=== PATIENT | female | born 1975 | race Hispanic/Latino ===

== ENCOUNTER 2018-01-10 04:10 | Inpatient (IN) | payer MEDICAID, OTHER ==
--- NOTE | 2018-01-10 04:26 | ED PDOC ---
Arrival/HPI - General Time Seen by Provider: 01/10/18 04:20 Historian: Patient - History of Present Illness Narrative History of Present Illness (Text): 01/10/18 04:25 Kendra Aleman is a 42 year old female, whose past medical history includes depression and schizoaffective disorder, transferred from [facility] for psychiatric admission. Patient was medically cleared earlier and admits to still feeling depressed. Patient denies any suicidal ideation, homicidal ideation, fever, chills, chest pain, shortness of breath, nausea, vomiting, diarrhea, urinary symptoms, back pain, neck pain, headache, dizziness, or any other complaints. Symptom Onset: Gradual Symptom Course: Unchanged Activities at Onset: Light Context: Home Past Medical History - Provider Review Nursing Documentation Reviewed: Yes Family/Social History - Physician Review Nursing Documentation Reviewed: Yes Family/Social History: Unknown Family HX Allergies/Home Meds Allergies/Adverse Reactions: Allergies Unobtainable Allergy (Verified 01/10/18 04:33) Home Medications: Home Meds Medication Instructions Recorded Confirmed Unobtainable 01/10/18 01/10/18 Review of Systems - Physician Review All systems were reviewed & negative as marked: Yes - Review of Systems Constitutional: Normal. absent: Fevers Eyes: Normal ENT: Normal Respiratory: Normal. absent: SOB, Cough Cardiovascular: Normal. absent: Chest Pain Gastrointestinal: Normal. absent: Abdominal Pain, Diarrhea, Nausea, Vomiting Genitourinary Female: Normal. absent: Dysuria, Frequency, Hematuria, Urine Output Changes Musculoskeletal: Normal. absent: Back Pain, Neck Pain Skin: Normal Neurological: Normal. absent: Headache, Dizziness Endocrine: Normal Hemo/Lymphatic: Normal Psychiatric: Depression Physical Exam Vital Signs Reviewed: Yes Vital Signs Temp Pulse Resp BP Pulse Ox 01/10/18 04:18 98.2 F 76 18 143/74 98 Temperature: Afebrile Blood Pressure: Normal Pulse: Regular Respiratory Rate: Normal Appearance: Positive for: Well-Appearing, Non-Toxic, Comfortable Pain Distress: None Mental Status: Positive for: Alert and Oriented X 3 - Systems Exam Head: Present: Atraumatic, Normocephalic Pupils: Present: PERRL Extroacular Muscles: Present: EOMI Conjunctiva: Present: Normal Mouth: Present: Moist Mucous Membranes Neck: Present: Normal Range of Motion Respiratory/Chest: Present: Clear to Auscultation, Good Air Exchange. No: Respiratory Distress, Accessory Muscle Use Cardiovascular: Present: Regular Rate and Rhythm, Normal S1, S2. No: Murmurs Abdomen: No: Tenderness, Distention, Peritoneal Signs Back: Present: Normal Inspection Upper Extremity: Present: Normal Inspection. No: Cyanosis, Edema Lower Extremity: Present: Normal Inspection. No: Edema Neurological: Present: GCS=15, CN II-XII Intact, Speech Normal Skin: Present: Warm, Dry, Normal Color. No: Rashes Psychiatric: Present: Alert, Oriented x 3, Normal Insight, Normal Concentration Medical Decision Making ED Course and Treatment: 01/10/18 04:25 Impression: 42 year old female transferred from [facility] for depression. 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 Patient will be admitted to [facility] for depression and schizoaffective disorder under Dr. Umana's service. Pt agreeable with plan. - Scribe Statement The provider has reviewed the documentation as recorded by the Biancaibabad Reed Provider Scribe Attestation: All medical record entries made by the Scribe were at my direction and personally dictated by me. I have reviewed the chart and agree that the record accurately reflects my personal performance of the history, physical exam, medical decision making, and the department course for this patient. I have also personally directed, reviewed, and agree with the discharge instructions and disposition. Disposition/Present on Arrival - Present on Arrival Any Indicators Present on Arrival: No History of DVT/PE: No History of Uncontrolled Diabetes: No Urinary Catheter: No History of Decub. Ulcer: No History Surgical Site Infection Following: None - Disposition Have Diagnosis and Disposition been Completed?: Yes Diagnosis: Depression Disposition: HOSPITALIZED Disposition Time: 04:36 Patient Plan: Admission Patient Problems: Current Active Problems Problem Status Onset Depression Acute Condition: STABLE
[2018-01-10] MEDS ORDERED: Permethrin 1% Kit 59 ML BOTTLE TOP ONE ×2 (04:57→09:47)
[2018-01-10] MEDS ORDERED: Magnesium Hydroxide Susp 30 ml UD PO PRN (04:57)
[2018-01-10] MEDS ORDERED: Alum-Mag Hydrox-Simethicone Susp (30 mL) PO PRN (04:57)
[2018-01-10 05:01] VITALS: O2SAT 99
--- NOTE | 2018-01-10 05:47 | PCM.BM ---
<Simon Arreola O - Last Filed: 01/10/18 06:18> Treatment Plan Problems - Problems identified on initial assessmt hopelessness Date Initiated: 01/10/18 Time Initiated: 05:45 Assessment reference: NA Status: Active Non-compliant with medications Date Initiated: 01/10/18 Time Initiated: 06:18 Assessment reference: NA Status: Active pOOR HYGIENE Date Initiated: 01/10/18 Time Initiated: 06:18 Assessment reference: NA Status: Active Treatment assets and liabiliti Patient Assests: ADL independent, good support system Patient Liabilities: poor support system - Milieu Protocol Maintain good personal hygiene: daily Encourage regular showers, daily Remind patient to perform daily oral care, daily Assist patient to perform ADL's Maintain personal safety: daily Educate patient to report safety concerns to staff, daily Monitor environment for contraband/sharps Medication safety: Monitor for expected outcome, potential side effects: daily, Assess barriers to learning: daily, Assess readiness for medication education: daily Family Contact Family involvement: Patient does not wish Family/SO involvement Family contact: Patient declines to allow family contact at present - Goals for Treatment Patient goals for treatment: I want to feel better than this Discharge/Continuing Care - Education Needs Education Needs: Patient Medication, Patient Diagnosis/Disease Process, Patient Coping Skills - Discharge Discharge Criteria: Normal sleep pattern, Ability to care for self <Tabatha Umana A - Last Filed: 01/10/18 09:15> - Diagnosis (1) MDD (major depressive disorder) Status: Acute Interventions: 01/10/18 09:14 Psychoeducation Psychopharmacology/adjustment of medications as needed/ monitoring possible side effects Evaluate pt on daily basis Compliance with medications and follow up appointments Suicide and homicide risk assessment and prevention Relapse prevention Reduction of symptoms Improve functional status Family involvement As outpatient: cognitive behavioral therapy
[2018-01-10 06:59] VITALS: RESP 20
[2018-01-10 08:21] LABS: GLUCOSE,FASTING 97 mg/dL (65-110); HDL CHOLESTEROL 29 mg/dL (29-60)
[2018-01-10 08:32] LABS: LDL CHOLESTEROL 74 mg/dL (0-129)
[2018-01-10 10:00] LABS: FREE T4 1.39 ng/dL (0.78-2.19); T4 9.8 ug/dL (5.5-11.0)
--- NOTE | 2018-01-10 14:38 | PCM.PSYCH ---
Initial Psychiatric Evaluation - Initial Psychiatric Evaluation Type of Admission: Voluntary Legal Status: Capacity (patient has capacity to sign consent for treatment) Chief Complaint (in patient's own words): "I feel depressed" Patient's Reaction to Hospitalization: patient was transferred from [facility] for evaluation of depressive symptoms, inability to take care of self, wish to be . History of Present Illness and Precipitating Events: Shortly pt is 42 yo male,h/o depression, homelessness, pt does not have h/o suicidal attempts, this is pt's first psychiatric admission, pt was brought into the [facility] for evaluation of severe depression for the past two months, inability to take care of self, pt had recent UTI, since that time pt had urine and fecal incontinence, pt was evicted from the group home because of the above, but later on allowed to stay there, pt also was had head lice, pt was not able to attend the partial care program because of her hygiene. pt obviously requires further evaluation and stabilization, meds resumption and titration. pt was seen in her room, pt presented with poor personal hygiene, smells feces, as per staff pt was not able to hold her BM and urine, pt took a shower was ordered NIX (permathrin) cream to her hair, but first dose pt was not able to use appropriate, second dose was ordered, pt has very long hair which required to be cut, pt agreed. pt has poor hygiene, poor ADLs. 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 pt denied feeling anxious, denied being abused, denied PTSD symptoms pt denied substance abuse h/o, denied smoking. Medical h/o: ? seizure, h/o UTI, h/o incontinence with urine and feces, lace infestation, ? h/o pain, hypothyroidism. 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 \\ pt denied h/o suicidal attempts, denied h/o psychiatric admission. but as per medical record pt has h/o treatment with [facility] in December 2017 , not sure if it was admission. Medical record reviewed, labs UA was +leukocyte esterase trace, WBC 11.8Neurotrophills 8.5 01/09/18. Lab Results 01/10/18 07:30: Free T4 1.39, Thyroxine (T4) 9.8 01/10/18 07:30: Free T3 pg/mL 3.78 01/10/18 07:30: Hemoglobin A1c 5.3 01/10/18 07:30: TSH 3rd Generation 6.80 H 01/10/18 07:30: Fasting Glucose 97, Triglycerides 119, Cholesterol 134, LDL Cholesterol Direct 74, HDL Cholesterol 29 Vital Signs Temp Pulse Resp BP Pulse Ox 01/10/18 06:58 97.5 F L 65 20 121/85 01/10/18 06:20 16 01/10/18 05:00 99 01/10/18 04:18 98.2 F 76 18 143/74 98 med list confirmed oxcarbazepine 150mg am and 300mg hs cymbalta 40mg po daily klonopin 0.5mg po daily pt was not taking meds for the past three weeks. Lab Results 01/10/18 07:30: Free T4 1.39, Thyroxine (T4) 9.8 01/10/18 07:30: Free T3 pg/mL 3.78 01/10/18 07:30: Hemoglobin A1c 5.3 01/10/18 07:30: TSH 3rd Generation 6.80 H 01/10/18 07:30: Fasting Glucose 97, Triglycerides 119, Cholesterol 134, LDL Cholesterol Direct 74, HDL Cholesterol 29 Vital Signs Temp Pulse Resp BP Pulse Ox 01/10/18 06:58 97.5 F L 65 20 121/85 01/10/18 06:20 16 01/10/18 05:00 99 01/10/18 04:18 98.2 F 76 18 143/74 98 Current Medications: Active Medications Generic Name Dose Route Start Last Admin Trade Name Freq PRN Reason Stop Dose Admin Acetaminophen 325 mg 01/10/18 04:57 Tylenol 325mg Tab PO Q6H PRN Pain, Mild (1-3) Al Hydrox/Mg Hydrox/Simethicone 30 ml 01/10/18 04:57 Maalox Plus 30 Ml PO DAILY PRN Dyspepsia Clonazepam 0.5 mg 01/10/18 08:00 Klonopin PO BID MU Protocol Duloxetine HCl 30 mg 01/10/18 08:00 Cymbalta PO DAILY MU Lorazepam 2 mg 01/10/18 04:58 Ativan PO Q6 PRN Agitation Protocol Lorazepam 2 mg 01/10/18 05:30 Ativan IM Q8 PRN Severe Agitation Magnesium Hydroxide 30 ml 01/10/18 04:57 Milk Of Magnesia PO DAILY PRN Constipation Zaleplon 5 mg 01/10/18 04:58 Sonata PO HS PRN Insomnia Ziprasidone 20 mg 01/10/18 04:58 Geodon Cap PO Q6 PRN Agitation Protocol Ziprasidone 20 mg 01/10/18 18:00 Geodon Inj IM Q12 MU Protocol Past Psychiatric History - Past Psychiatric History Previous Treatment History: Inpatient Prior Professional Help: see HPI Prior Psychiatric Treatment: see HPI At what hospital: see HPI Duration: see HPI Nature of Treatment: see HPI Explanation of prior treatment: see HPI History of Abuse: see HPI History of ETOH/Drug Use: see HPI History of Family Illness: see HPI Pertinent Medical Hx (Current Medical&Sleep Prob, Allergies): Allergies Allergy/AdvReac Type Severity Reaction Status Date / Time keppra Allergy ITCHING Uncoded 01/10/18 05:43 Klonopin 1 mg PO BID MDD 2mg 01/10/18 Review of Systems - Review of Systems Systems not reviewed;Unavailable: Acuity of Condition - EENT Eyes: As Per HPI Ears: As Per HPI Nose/Mouth/Throat: As Per HPI - Breasts Breasts: As Per HPI - Cardiovascular Cardiovascular: As Per HPI - Respiratory Respiratory: As Per HPI - Gastrointestinal Gastrointestinal: As Per HPI - Genitourinary Genitourinary: As Per HPI - Reproductive: Female Reproductive:Female: As Per HPI - Menstruation Menstruation: As Per HPI - Musculoskeletal Musculoskeletal: As Par HPI - Integumentary Integumentary: As Per HPI - Neurological Neurological: As Per HPI - Psychiatric Psychiatric: As Per HPI - Endocrine Endocrine: As Per HPI - Hematologic/Lymphatic Hematologic: As Per HPI Mental Status Examination - Personal Presentation Personal Presentation: Looks older than stated age - Affect Affect: Constricted, Flat - Motor Activity Motor Activity: Psychomotor Retardation - Reliability in Providing Information Reliability in Providing Information: Poor, due to alteration in thoughts, Poor , due to altered mood - Speech Speech: Organized (but concrete) - Mood Mood: Depressed - Formal Thought Process Formal Thought Process: No Impairment - Obsessions/Compulsions Obsessions: None Compulsions: None - Cognitive Functions Orientation: Person Sensorium: Alert Attention/Concentration: Easily distracted Abstract Thinking: [place] Estimate of Intelligence: Below average Judgement: Intact, as evidence by: Insight regarding need for hospitalization - Risk Risk: Diminished functioning - Strength & Assets Inventory Strength & Assets Inventory: Cooperative, Other (no drugs, good support from case management, no psychosis) - Limitations Limitations: Other (homeless, severe symptoms) DSM 5 DX - DSM 5 DSM 5 Diagnosis: r/o mdd with catatonia - Recommended/Plan of Treatment Treatment Recommendations and Plan of Treatment: Milieu/structure/supportive therapy Medical consult appreciated, discussed with Dr.Rangasami louie confirmed and resumed consultation for discharge plan and social issues collaterals obtained, see notes for more detailed information (briefly pt was not compliant with meds 3 weeks prior, due to insurance issues, when was on meds, was functioning well.) Family involvement Follow up on labs Will monitor closely Pt was educated about risk/benefits and alternatives of medications, coping strategies (safety plan, suicide prevention), relapse prevention, importance of follow up with psychiatrist and therapist, stay away from drugs/alcohol/smoking Projected ELOS: 7days Prognosis: guarded Discharge Plan and Discharge Criteria: Pt will be not depressed or manic, will be more hopeful, will be not psychotic or anxious, will be not having thoughts of harming self or others, will be tolerating medications well, will not have major side effects, will be able to function, will not pose threat to self or others. - Smoking Cessation Smoking Cessation Initiated: No Reason for not providing: denied smoking
--- NOTE | 2018-01-10 15:27 | CON ---
DATE: 01/10/2018 ENDOCRINOLOGY CONSULT LOCATION: In room 508, Psychiatry. HISTORY OF PRESENT ILLNESS: This is a 42-year-old female with recent major depressive disorder and transferred here from [facility] for closer psychiatric evaluation and management and is being referred now also for endocrine evaluation because of abnormal thyroid function studies. PAST MEDICAL HISTORY: As mentioned above, history of hypothyroidism and previously on levothyroxine replacement therapy, the exact dose is not known at this time. History of chronic schizoaffective disorder with major depression and has been off her psychotropic medications for almost a month now as noted. FAMILY HISTORY: Positive for hypertension and heart disease. SOCIAL HISTORY: The patient has supportive family. No known substance use. REVIEW OF SYSTEMS: As mentioned above. Admits to generalized body weakness with episodic dizziness and lightheadedness and bifrontal headaches, worse on the day of admission. Also admits to insomnia and disrupted sleep patterns with agitation and worsening major depressive disorder. She denies any suicidal ideations at this time. She also admits to easy fatigability and tiredness and occasional cold intolerance. No chest pains or palpitations or PNDs, but oral intake has been variable with nausea, dyspepsia and vague upper abdominal pains with habitual constipation. PHYSICAL EXAMINATION: GENERAL: This is an obese female, in no apparent distress. VITAL SIGNS: Blood pressure of 140/80; pulse of 100 beats per minute, regular; temperature 98; respirations 20; height is 5 feet 6 inches, weight is 220 pounds. HEENT: Head normocephalic. Eyes anicteric with pink conjunctivae. Funduscopy not possible at this time. Ears, nose and throat otherwise normal. NECK: Supple. Thyroid gland is normal sized. No carotid bruits or cervical adenopathy. CARDIOPULMONARY: Some adynamic precordium. S1, S2 are rapid and regular. LUNGS: Clear to auscultation. ABDOMEN: Flat, soft with positive bowel sounds. EXTREMITIES: No peripheral edema. Pulses are +2 bilaterally. LABORATORY DATA: Her chemistries are actually incomplete, but the TSH is 6.8 with a free T4 of 1.39 and a total T4 of 9.8. Her A1c is 5.3 with a cholesterol of 134 and triglycerides of 119 with HDL of 29. ASSESSMENT: This is a 42-year-old female with early hypothyroidism, most likely related to recent drug omission and and also with underlying autoimmune thyroiditis, presenting here with major depressive disorder and undergoing closer psychiatric evaluation and management. PLAN OF MANAGEMENT: We will continue the levothyroxine ordered as 100 mcg once daily and we will obtain serial chemistries and supplement accordingly as needed. We will also obtain serial thyroid studies and titrate her dose regimen accordingly. We will obtain a thyroid peroxidase and thyroglobulin antibody to confirm and/or indicate the presence of underlying thyroid autoimmunity. We will follow. Nancy Howell MD [facility] # [id number]
--- NOTE | 2018-01-10 15:38 | CP.PCM.CON ---
<Saskia Morin - Last Filed: 01/10/18 17:59> History of Present Illness - History of Present Illness History of Present Illness: PGY-1 Saskia Morin D.O. Medicine consult note for Dr. Culp's service: Kendra Aleman is a 42 yo female currently admitted to the psychiatric unit for depression and possible schizoaffective disorder. Hospitalist team was consulted to evaluate medical issues. Patient currently has urinary and bowel incontinence with diarrhea. Patient is a poor historian. She speaks slowly and states she forgets many things. She lives in a intermediate. She was treated for lice upon admission yesterday. She states she has been incontinent for at least a month but is unable to describe why or for how long she has had diarrhea. She also complains of nausea and abdominal pain. She does note that she recently had a UTI and was likely treated with antibiotics at [facility]. She denies any close family members, and a licensed social worker is her "next of kin." She states she has not had a menstrual period in many years. She has never been . 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 absent: Headache - EENT Eyes: absent: Change in Vision Ears: absent: Decreased Hearing Nose/Mouth/Throat: absent: Nasal Congestion - Cardiovascular Cardiovascular: absent: Chest Pain, Dyspnea, Palpitations - Respiratory Respiratory: absent: Cough - Gastrointestinal Gastrointestinal: Abdominal Pain, Belching, Diarrhea, Fecal Incontinence, Nausea. absent: Vomiting - Genitourinary Genitourinary: Urinary Incontinence. absent: Dysuria, Hematuria - Reproductive: Female Reproductive:Female: Amenorrhea - Menstruation Menstruation: Amenorrhea - Musculoskeletal Musculoskeletal: absent: Arthralgias, Back Pain, Myalgias - Integumentary Integumentary: Hirsutism. absent: Lesions - Neurological Neurological: Memory Loss. absent: Focal Weakness, Headaches, Sensory Deficit - Psychiatric Psychiatric: Anxiety, Depression, Hopelessness. absent: Suicidal Ideation - Endocrine Endocrine: Fatigue. absent: Palpitations Past Patient History - Infectious Disease Hx of Infectious Diseases: None - Tetanus Immunizations Tetanus Immunization: Unknown - Past Medical History & Family History Past Medical History?: Yes Past Family History: Reviewed and not pertinent - Past Social History Smoking Status: Never Smoked Chewing Tobacco Use: No Cigar Use: No Alcohol: None Drugs: Denies Home Situation {Lives}: Homeless (intermediate) - ENDOCRINE/METABOLIC Hx Endocrine Disorders: Yes Hx Hypothyroidism: Yes - PSYCHIATRIC Hx Depression: Yes Hx Substance Use: No - ANESTHESIA Hx Anesthesia: No Meds Allergies/Adverse Reactions: Allergies Allergy/AdvReac Type Severity Reaction Status Date / Time keppra Allergy ITCHING Uncoded 01/10/18 05:43 - Medications Medications: Current Medications Acetaminophen (Tylenol 325mg Tab) 325 mg PO Q6H PRN PRN Reason: Pain, Mild (1-3) Last Admin: 01/10/18 13:25 Dose: 325 mg Al Hydrox/Mg Hydrox/Simethicone (Maalox Plus 30 Ml) 30 ml PO DAILY PRN PRN Reason: Dyspepsia Clonazepam (Klonopin) 0.5 mg PO BID MU PRN Reason: Protocol Last Admin: 01/10/18 09:21 Dose: 0.5 mg Duloxetine HCl (Cymbalta) 30 mg PO DAILY [facility] Last Admin: 01/10/18 09:23 Dose: 30 mg Famotidine (Pepcid) 20 mg PO 1000,2200 MU Gabapentin (Neurontin) 300 mg PO TID MU PRN Reason: Protocol Levothyroxine Sodium (Synthroid) 100 mcg PO 0600 MU Lorazepam (Ativan) 2 mg PO Q6 PRN; Protocol PRN Reason: Agitation Last Admin: 01/10/18 13:27 Dose: 2 mg Lorazepam (Ativan) 2 mg IM Q8 PRN PRN Reason: Severe Agitation Magnesium Hydroxide (Milk Of Magnesia) 30 ml PO DAILY PRN PRN Reason: Constipation Ondansetron HCl (Zofran Tab) 4 mg PO Q8H PRN PRN Reason: Nausea/Vomiting Oxcarbazepine (Trileptal) 150 mg PO DAILY MU PRN Reason: Protocol Oxcarbazepine (Trileptal) 300 mg PO HS MU PRN Reason: Protocol Zaleplon (Sonata) 5 mg PO HS PRN PRN Reason: Insomnia Ziprasidone (Geodon Cap) 20 mg PO Q6 PRN; Protocol PRN Reason: Agitation Ziprasidone (Geodon Inj) 20 mg IM Q12 MU PRN Reason: Protocol Physical Exam - Constitutional Appears: No Acute Distress, Unkempt, Confused - Head Exam Head Exam: ATRAUMATIC, NORMAL INSPECTION - Eye Exam Eye Exam: EOMI, Normal appearance, PERRL - ENT Exam ENT Exam: Mucous Membranes Moist Additional comments: patient intermittently belching and gagging - Neck Exam Neck exam: Positive for: Normal Inspection - Respiratory Exam Respiratory Exam: Clear to Auscultation Bilateral, NORMAL BREATHING PATTERN - Cardiovascular Exam Cardiovascular Exam: REGULAR RHYTHM, +S1, +S2 - GI/Abdominal Exam GI & Abdominal Exam: Normal Bowel Sounds, Soft. absent: Tenderness - Rectal Exam Rectal Exam: Deferred - Exam Additional comments: wearing diaper, noticeable leakage of feces - Extremities Exam Additional comments: scabs, thick hair - Back Exam Back exam: NORMAL INSPECTION - Neurological Exam Neurological exam: Alert, CN II-XII Intact, Oriented x3 - Psychiatric Exam Psychiatric exam: Depressed, Flat Affect Additional comments: slow to respond, forgetful, concrete thinking, monotone - Skin Skin Exam: Dry, Normal Color, Warm Additional comments: male-pattern hair on face Results - Vital Signs Recent Vital Signs: Last Vital Signs Temp 97.5 F L 01/10/18 06:58 Pulse 65 01/10/18 06:58 Resp 20 01/10/18 06:58 BP 121/85 01/10/18 06:58 Pulse Ox 99 01/10/18 05:00 - Labs Result Diagrams: 01/10/18 15:54 01/10/18 15:54 Labs: Laboratory Results - last 24 hr 01/10/18 01/10/18 01/10/18 07:30 07:30 07:30 Fasting Glucose 97 Hemoglobin A1c 5.3 Triglycerides 119 Cholesterol 134 LDL Cholesterol Direct 74 HDL Cholesterol 29 Free T4 Thyroxine (T4) Free T3 pg/mL TSH 3rd Generation 6.80 H 01/10/18 01/10/18 07:30 07:30 Fasting Glucose Hemoglobin A1c Triglycerides Cholesterol LDL Cholesterol Direct HDL Cholesterol Free T4 1.39 Thyroxine (T4) 9.8 Free T3 pg/mL 3.78 TSH 3rd Generation Assessment & Plan - Assessment and Plan (Free Text) Assessment: Patient is a 42 yo female currently admitted on the psychiatry unit for depression. Medicine team was consulted for diarrhea and bowel and bladder incontinence. Plan: Diarrhea with bowel incontinence - Leukocytosis 17.2 - f/u C. diff - f/u stool leukocytes - f/u stool O&P - f/u stool Cx - f/u CBC in AM Urinary incontinence- h/o of recent UTI - Leukocytosis 17.2 - f/u UA - f/u urine Cx Hypothyroidism - TSH elevated (6.8) - T4, free T4, T3 wnl - Continue Synthroid 100 mcg PO daily - Endocrinology consulted (Cam) Hirsutism - Endocrinology consulted (Cam) Hypokalemia - Repleted - F/u CMP in AM Hypomagnesemia - Repleted - F/u in AM ?Seizure disorder - Continue Tripleptal and Klonopin - Consider neurology consult if necessary Depression vs schizoaffective disorder - Management as per psychiatry Case was discussed with Dr. Culp <Jennifer Culp - Last Filed: 01/12/18 15:36> Results - Vital Signs Recent Vital Signs: Last Vital Signs Temp 98.7 F 01/11/18 07:07 Pulse 68 01/11/18 16:00 Resp 20 01/11/18 07:07 BP 126/84 01/11/18 16:00 Pulse Ox 99 01/10/18 05:00 - Labs Result Diagrams: 01/11/18 08:10 01/11/18 08:10 Labs: Laboratory Results - last 24 hr 01/10/18 15:28 Stool Leukocytes, Qual Negative Attending/Attestation - Attestation I have personally seen and examined this patient.: Yes I have fully participated in the care of the patient.: Yes I have reviewed all pertinent clinical information: Yes Notes (Text): 01/12/18 15:31 Attending note; patient seen and examined with the resident in psychiatric floor. Patient is alert and awake. Depressed/flat affect. Slow in responding to questions. but Responded appropriately. Complaining of diarrhea one episode. Patient was not able to make it to the bathroom. Patient with a long-standing history of psychiatric disorder. Currently homeless. Currently denies any abdominal pain. Any nausea, vomiting. Any urinary symptoms. Tolerating liquid diet. Patient is a 42 year old female currently admitted to the psychiatric unit for depression and possible schizoaffective disorder. Diarrhea; patient with a recent use of Augmentin for urinary tract infection. Stool for C. difficile ordered. Continue liquid diet. Continue Zofran when necessary. Continue Pepcid. Hypothyroidism; continue Synthroid. Hypokalemia; continue potassium supplementation. Leukocytosis; improving slowly. Monitor closely. Continue management by psychiatrist. We will follow up the patient closely with you. Case discussed with psychiatrist in detail. 01/12/18 15:35
[2018-01-10 15:58] LABS: BASO # 0.02 K/mm3 (0.0-2.0); BASO % 0.1 % (0.0-3.0); EOS # 0.1 (0.0-0.7); EOS % 0.3 % (1.5-5.0); GRAN # 13.47 (1.4-6.5); GRAN % 78.5 % (50.0-68.0); HEMOGLOBIN 15.3 g/dL (12.0-16.0); LYMPH # 2.4 (1.2-3.4); MEAN CELL VOLUME 90.3 fl (80.0-105.0); MEAN CORPUSCULAR HEMOGLOBIN 30.9 pg (25.0-35.0); MEAN CORPUSCULAR HGB CONC 34.2 g/dl (31.0-37.0); MEAN PLATELET VOLUME 9.3 fl (7.0-11.0); MONO # 1.2 (0.1-0.6); MONO % 7.1 % (1.0-6.0); RBC 4.95 10^6/uL (3.5-6.1); RED CELL DISTRIBUTION WIDTH 15.9 % (11.5-14.5); WHITE BLOOD COUNT 17.2 10^3/ul (4.5-11.0)
[2018-01-10 16:07] LABS: ALB/GLOB RATIO 1.1 (1.1-1.8); ALBUMIN 3.8 g/dL (3.0-4.8); ALT/SGPT 22 U/L (7-56); AST/SGOT 32 U/L (14-36); BLOOD UREA NITROGEN 5 mg/dL (7-21); CALCIUM 9.4 mg/dL (8.4-10.5); GFR NON-AFRICAN AMERICAN > 60
[2018-01-10] MEDS ORDERED: Potassium Chloride 40 mEq/30 ml LIQ UD PO ONE (17:42)
--- NOTE | 2018-01-11 05:48 | CP.PCM.PN ---
Subjective - Date & Time of Evaluation Date of Evaluation: 01/11/18 Time of Evaluation: 12:00 - Subjective Subjective: PGY-1 Saskia Morin D.O. Medicine progress note for Dr. Culp's service : Patient is seen and examined. She is positive for C. diff. Patient is lying in bed. She states that her diarrhea has resolved, and nursing staff does not report any bowel movements since yesterday afternoon. She reports that she is tolerating clear liquids and does not want to try a regular diet yet. She denies nausea and vomiting. She still appears depressed with a flat affect and slow monotone speech. She is no longer gagging as she was yesterday throughout the interview. Objective - Vital Signs/Intake and Output Vital Signs (last 24 hours): Temp Pulse Resp BP Pulse Ox 97.5 F L 79 20 115/74 99 01/10/18 06:58 01/10/18 16:00 01/10/18 06:58 01/10/18 16:00 01/10/18 05:00 - Medications Medications: Current Medications Acetaminophen (Tylenol 325mg Tab) 325 mg PO Q6H PRN PRN Reason: Pain, Mild (1-3) Last Admin: 01/10/18 13:25 Dose: 325 mg Al Hydrox/Mg Hydrox/Simethicone (Maalox Plus 30 Ml) 30 ml PO DAILY PRN PRN Reason: Dyspepsia Clonazepam (Klonopin) 0.5 mg PO BID MU PRN Reason: Protocol Last Admin: 01/10/18 17:47 Dose: 0.5 mg Duloxetine HCl (Cymbalta) 30 mg PO DAILY [facility] Last Admin: 01/10/18 09:23 Dose: 30 mg Famotidine (Pepcid) 20 mg PO 1000,2200 [facility] Last Admin: 01/10/18 21:49 Dose: 20 mg Gabapentin (Neurontin) 300 mg PO TID MU PRN Reason: Protocol Last Admin: 01/10/18 17:47 Dose: 300 mg Levothyroxine Sodium (Synthroid) 100 mcg PO 0600 MU Lorazepam (Ativan) 2 mg PO Q6 PRN; Protocol PRN Reason: Agitation Last Admin: 01/10/18 13:27 Dose: 2 mg Lorazepam (Ativan) 2 mg IM Q8 PRN PRN Reason: Severe Agitation Magnesium Hydroxide (Milk Of Magnesia) 30 ml PO DAILY PRN PRN Reason: Constipation Magnesium Oxide (Mag-Ox) 400 mg PO ONCE ONE Stop: 01/11/18 17:47 Ondansetron HCl (Zofran Tab) 4 mg PO Q8H PRN PRN Reason: Nausea/Vomiting Last Admin: 01/10/18 17:48 Dose: 4 mg Oxcarbazepine (Trileptal) 150 mg PO DAILY MU PRN Reason: Protocol Oxcarbazepine (Trileptal) 300 mg PO HS MU PRN Reason: Protocol Last Admin: 01/10/18 21:48 Dose: 300 mg Zaleplon (Sonata) 5 mg PO HS PRN PRN Reason: Insomnia Ziprasidone (Geodon Cap) 20 mg PO Q6 PRN; Protocol PRN Reason: Agitation Ziprasidone (Geodon Inj) 20 mg IM Q6H PRN; Protocol PRN Reason: Severe Agitation - Labs Labs: 01/10/18 15:54 01/10/18 15:54 - Constitutional Appears: Non-toxic, No Acute Distress, Unkempt, Confused - Head Exam Head Exam: ATRAUMATIC, NORMAL INSPECTION - Eye Exam Eye Exam: EOMI, Normal appearance - ENT Exam ENT Exam: Mucous Membranes Moist - Neck Exam Neck Exam: Normal Inspection - Respiratory Exam Respiratory Exam: Clear to Ausculation Bilateral, NORMAL BREATHING PATTERN - Cardiovascular Exam Cardiovascular Exam: REGULAR RHYTHM, +S1, +S2 - GI/Abdominal Exam GI & Abdominal Exam: Soft, Normal Bowel Sounds. absent: Tenderness - Rectal Exam Rectal Exam: Deferred - Exam Additional comments: wearing diaper - Extremities Exam Extremities Exam: absent: Pedal Edema, Tenderness Additional comments: scabs, thick hair - Back Exam Back Exam: NORMAL INSPECTION - Neurological Exam Neurological Exam: Alert, Awake, CN II-XII Intact - Psychiatric Exam Psychiatric exam: Flat Affect - Skin Skin Exam: Normal Color, Warm Additional comments: male-pattern hair on face Assessment and Plan - Assessment and Plan (Free Text) Assessment: Patient is a 42 yo female currently admitted on the psychiatry unit for depression. Medicine team was consulted for diarrhea and bowel and bladder incontinence with diarrhea. Patient is positive for C. diff Ag. She denies having any diarrhea since yesterday afternoon. Plan: Diarrhea, improved - Full liquids- advance as tolerated - Leukocytosis improving 17.2->11.7 - Stool occult blood negative - C. diff Ag positive, toxin negative - f/u stool leukocytes - f/u stool O&P - f/u stool Cx - Tylenol 650 mg PO Q6H PRN pain - Pepcid 20 mg PO BID - Zofran 4 mg PO Q8H PRN nausea - Start Vancomycin 125 mg PO QID Urinary incontinence- h/o of recent UTI - Leukocytosis improving 17.2->11.7 - f/u UA - f/u urine Cx Hypothyroidism - TSH elevated (6.8) - T4, free T4, T3 wnl - Continue Synthroid 100 mcg PO daily - Endocrinology consulted (Cam) Hirsutism - Endocrinology consulted (Cam) Hypokalemia, resolved - Repleted Hypomagnesemia - Repleted ?Seizure disorder - Continue Tripleptal and Klonopin - Consider neurology consult if necessary Depression vs schizoaffective disorder - Management as per psychiatry Case was discussed with Dr. Culp.
[2018-01-11] MEDS ORDERED: Levothyroxine 100 MCG TAB PO SCH (06:00)
[2018-01-11 07:08] VITALS: TEMP 98.7
[2018-01-11 08:25] LABS: BASO # 0.02 K/mm3 (0.0-2.0); BASO % 0.2 % (0.0-3.0); EOS # 0.2 (0.0-0.7); GRAN # 7.05 (1.4-6.5); GRAN % 60.4 % (50.0-68.0); HEMOGLOBIN 14.9 g/dL (12.0-16.0); LYMPH # 3.1 (1.2-3.4); LYMPH % 26.8 % (22.0-35.0); MEAN CELL VOLUME 91.5 fl (80.0-105.0); MEAN CORPUSCULAR HGB CONC 33.9 g/dl (31.0-37.0); MEAN PLATELET VOLUME 9.5 fl (7.0-11.0); MONO # 1.2 (0.1-0.6); MONO % 10.6 % (1.0-6.0); RBC 4.8 10^6/uL (3.5-6.1); RED CELL DISTRIBUTION WIDTH 16.1 % (11.5-14.5); WHITE BLOOD COUNT 11.7 10^3/ul (4.5-11.0)
[2018-01-11 08:40] LABS: ALB/GLOB RATIO 1.1 (1.1-1.8); ALBUMIN 3.6 g/dL (3.0-4.8); ALT/SGPT 28 U/L (7-56); AST/SGOT 49 U/L (14-36); BLOOD UREA NITROGEN 5 mg/dL (7-21); CALCIUM 9.1 mg/dL (8.4-10.5); GFR NON-AFRICAN AMERICAN > 60; HDL CHOLESTEROL 26 mg/dL (29-60)
[2018-01-11 08:44] LABS: LDL CHOLESTEROL 70 mg/dL (0-129)
[2018-01-11 08:50] LABS: T4 9.1 ug/dL (5.5-11.0)
[2018-01-11] MEDS ORDERED: Magnesium Oxide 400 mg Tab UD PO ONE ×2 (09:10→17:46)
--- NOTE | 2018-01-11 15:52 | PCM.PYCHPN ---
Psychiatric Progress Note - Psychiatric Progress Note Patient seen today, length of contact: 30 minutes Patient Chief Complaint: "I feel depressed" Problems Identified/Issues Discussed: Suicide/ homicide prevention, past psychiatric h/o, current psychiatric symptoms , medical problems, risk/benefits and alternatives of medications, medications compliance, coping strategies, substance abuse h/o, relapse prevention, importance of follow up with psychiatrist and therapist, discharge plan. Medical Problems: multiple medical issues, please see medical team notes for more detailed information, Clostridium difficile patient is on contact isolation Diagnostic Results: 01/11/18 08:10 01/11/18 08:10 Lab Results 01/11/18 08:10: WBC 11.7 H D, RBC 4.80, Hgb 14.9, Hct 43.9, MCV 91.5, MCH 31.0, MCHC 33.9, RDW 16.1 H, Plt Count 354, MPV 9.5, Gran % 60.4, Lymph % (Auto) 26.8 , Dawson % (Auto) 10.6 H, Eos % (Auto) 2.0, Baso % (Auto) 0.2, Gran # 7.05 H, Lymph # (Auto) 3.1, Dawson # (Auto) 1.2 H, Eos # (Auto) 0.2, Baso # (Auto) 0.02 01/11/18 08:10: Thyroxine (T4) 9.1, TSH 3rd Generation 4.69 H 01/11/18 08:10: Cortisol AM Sample 14.0 01/11/18 08:10: Sodium 137, Potassium 3.6, Chloride 95 L, Carbon Dioxide 31, Anion Gap 15, BUN 5 L, Creatinine 0.9, Est GFR ( Amer) > 60, Est GFR (Non -Af Amer) > 60, Random Glucose 83, Calcium 9.1, Phosphorus 4.2, Magnesium 1.6 L , Total Bilirubin 0.5, AST 49 H D, ALT 28, Alkaline Phosphatase 80, Total Protein 6.9, Albumin 3.6, Globulin 3.3, Albumin/Globulin Ratio 1.1, Triglycerides 102, Cholesterol 124 L, LDL Cholesterol Direct 70, HDL Cholesterol 26 L 01/10/18 16:34: Stool Occult Blood Negative 01/10/18 15:54: Sodium 137, Potassium 3.2 L, Chloride 95 L, Carbon Dioxide 27, Anion Gap 18, BUN 5 L, Creatinine 0.8, Est GFR ( Amer) > 60, Est GFR (Non -Af Amer) > 60, Random Glucose 98, Calcium 9.4, Phosphorus 3.0, Magnesium 1.6 L , Total Bilirubin 0.4, AST 32, ALT 22, Alkaline Phosphatase 84, Total Protein 7.1, Albumin 3.8, Globulin 3.3, Albumin/Globulin Ratio 1.1 01/10/18 15:54: WBC 17.2 H, RBC 4.95, Hgb 15.3, Hct 44.7, MCV 90.3, MCH 30.9, MCHC 34.2, RDW 15.9 H, Plt Count 360, MPV 9.3, Gran % 78.5 H, Lymph % (Auto) 14.0 L, Dawson % (Auto) 7.1 H, Eos % (Auto) 0.3 L, Baso % (Auto) 0.1, Gran # 13.47 H, Lymph # (Auto) 2.4, Dawson # (Auto) 1.2 H, Eos # (Auto) 0.1, Baso # (Auto ) 0.02 01/10/18 07:30: Free T4 1.39, Thyroxine (T4) 9.8 01/10/18 07:30: Free T3 pg/mL 3.78 01/10/18 07:30: Hemoglobin A1c 5.3 01/10/18 07:30: RPR Nonreactive 01/10/18 07:30: TSH 3rd Generation 6.80 H 01/10/18 07:30: Fasting Glucose 97, Triglycerides 119, Cholesterol 134, LDL Cholesterol Direct 74, HDL Cholesterol 29 Vital Signs Temp Pulse Resp BP Pulse Ox 01/11/18 07:07 98.7 F 71 20 105/71 01/10/18 16:00 79 115/74 01/10/18 06:58 97.5 F L 65 20 121/85 01/10/18 06:20 16 01/10/18 05:00 99 01/10/18 04:18 98.2 F 76 18 143/74 98 DSM 5 Symptoms Update: Shortly pt is 42 yo male,h/o depression, homelessness, pt does not have h/o suicidal attempts, this is pt's first psychiatric admission, pt was brought into the [facility] for evaluation of severe depression for the past two months, inability to take care of self, pt had recent UTI, since that time pt had urine and fecal incontinence, [facility] because of the above, but later on allowed to stay there, pt also was had head lice, pt was not able to attend the partial care program because of her hygiene. pt obviously requires further evaluation and stabilization, meds resumption and titration. pt was seen in her room, c.diff came back positive, pt was seen by medical team , as of now pt needs to be on contact isolation, pt does not require to goto the medical site as of now. pt presented with psychomotor retardation, sleepy,. Poor historian, reported being depressed. as per staff patient eighth at the morning time, no agitation or depression. So far patient tolerates medications well, no side effects observed or reported , aims 0, no EPS. Impression: Major depressive disorder severe with psychomotor retardation Medication Change: Yes (Klonopin increased for catatonia) Medical Record Reviewed: Yes Consults ordered or reviewed: medical consult appreciated ID consult appreciated Mental Status Examination - Cognitive Function Orientation: Person Memory: Impaired Attention: Poor Concentration: Poor Association: Loose Fund of Knowledge: Poor - Mood Mood: Depressed - Affect Affect: Constricted, Flat - Formal Thought Process Formal Thought Process: No Impairment - Suicidal Ideation Suicidal Ideation: No - Homicidal Ideation Homicidal Ideation: No Goal/Treatment Plan - Goal/Treatment Plan Need for Continued Stay: Remain at risks for inpatient hospitalization, Severe depression anxiety, Discharge may exacerbated symptoms, Severe functional impairment Progress Toward Problem(s) and Goals/Treatment Plan: Milieu/structure/supportive therapy Medical consult appreciated, discussed with meds confirmed and resumed Klonopin 1 mg twice a day for catatonia and anxiety Cymbalta 30 mg daily for depression Patient is on contact isolation consultation for discharge plan and social issues collaterals obtained, see notes for more detailed information (briefly pt was not compliant with meds 3 weeks prior, due to insurance issues, when was on meds, was functioning well.) Family involvement Follow up on labs Will monitor closely Pt was educated about risk/benefits and alternatives of medications, coping strategies (safety plan, suicide prevention), relapse prevention, importance of follow up with psychiatrist and therapist, stay away from drugs/alcohol/smoking Estimated Date of D/C: 01/19/18 - Smoking Cessation Smoking Cessation Initiated: No Reason for not providing: denied
[2018-01-11 16:36] VITALS: BP 126/84; PULSE 68
[2018-01-11] MEDS ORDERED: Vancomycin 25 MG/ML PO SCH (18:00)
--- NOTE | 2018-01-11 22:12 | PN ---
DATE: 01/11/2018 ENDOCRINOLOGY FOLLOWUP NOTE LOCATION: Room 508, Psychiatry. SUBJECTIVE: This is a 42-year-old female with recent admission for major depressive disorder and is now being followed closely for psychiatric evaluation and management and is also being followed for metabolic management because of overt hypothyroidism related to recent drug omission. Her repeat chemistries today showed a BUN of 5, sodium 137, potassium 3.6, chloride 95, CO2 of 31, glucose 83, and creatinine 0.9. Her serum cortisol level is 14 mcg/dL. The repeat thyroid studies showed a T4 of 9.1 mcg/dL with a TSH of 4.69. So, at this time, we will continue the same levothyroxine given as 100 mcg daily to allow for full dose equilibration. We will obtain serial chemistries and supplement accordingly as needed. We will also obtain serial thyroid studies and titrate her dose regimen as indicated. We will follow. Nancy Howell MD
== END 2018-01-11 19:00 | disposition short-term general hospital (02) | DRG 426 ==
LOC: ED 04:10 → ERH 04:33 → PSYC 04:55
PROVIDERS: ADMIT Psychiatry & Neurology Psychiatry; ATTEND Psychiatry & Neurology Psychiatry
DX: F32.9 Major depressive disorder, single episode, unspecified (principal); A04.72 Enterocolitis due to Clostridium difficile, not specified as recurrent; R32 Unspecified urinary incontinence; F20.2 Catatonic schizophrenia; F41.9 Anxiety disorder, unspecified; G40.909 Epilepsy, unspecified, not intractable, without status epilepticus; E03.9 Hypothyroidism, unspecified; B85.0 Pediculosis due to Pediculus humanus capitis; I10 Essential (primary) hypertension; Z78.9 Other specified health status; Z79.890 Hormone replacement therapy; Z91.14 Patient's other noncompliance with medication regimen

== ENCOUNTER 2018-01-12 18:30 | Inpatient (IN) | payer MEDICAID, OTHER ==
[2018-01-11 19:02] VITALS: BMI 30.9
[2018-01-12] MEDS: Vancomycin 25 MG/ML PO SCH (21:41)
--- NOTE | 2018-01-13 04:02 | PCM.BM ---
<Noris Jewell - Last Filed: 01/13/18 04:00> Treatment Plan Problems - Problems identified on initial assessmt Ineffective Coping skills Date Initiated: 01/12/18 Time Initiated: 23:10 Assessment reference: NA Status: Active medication non-adherence Date Initiated: 01/12/18 Time Initiated: 23:15 Assessment reference: NA Status: Active Self Care deficit Date Initiated: 01/12/18 Time Initiated: 23:15 Assessment reference: NA Status: Active Treatment assets and liabiliti Patient Assests: ADL independent, good support system <Tabatha Umana - Last Filed: 01/13/18 07:16> - Diagnosis (1) MDD (major depressive disorder) Status: Acute Interventions: 01/13/18 07:16 Psychoeducation Psychopharmacology/adjustment of medications as needed/ monitoring possible side effects Evaluate pt on daily basis Compliance with medications and follow up appointments Suicide and homicide risk assessment and prevention Relapse prevention Reduction of symptoms Improve functional status Family involvement As outpatient: cognitive behavioral therapy (2) Hypothyroidism Status: Chronic Interventions: 01/13/18 07:16 pt has a lot of medical issues Pt will be seen by medical team as needed 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
[2018-01-13] MEDS: Levothyroxine 100 MCG TAB PO SCH (06:30)
[2018-01-13] MEDS: Vancomycin 25 MG/ML PO SCH ×4 (09:16→22:24)
--- NOTE | 2018-01-13 11:07 | PCM.PYCHPN ---
Psychiatric Progress Note - Psychiatric Progress Note Patient seen today, length of contact: 30min Patient Chief Complaint: "I am kind of not good" Problems Identified/Issues Discussed: Suicide/ homicide prevention, past psychiatric h/o, current psychiatric symptoms , medical problems, risk/benefits and alternatives of medications, medications compliance, coping strategies, substance abuse h/o, relapse prevention, importance of follow up with psychiatrist and therapist, discharge plan. Medical Problems: Vital Signs Temp Pulse Resp BP 01/13/18 06:45 97.5 F L 64 20 105/62 01/12/18 22:00 18 see HPI c.diff on abx h/o lice treated hypothyroidism see HPI for more detailed info Diagnostic Results: see labs from the medical admission DSM 5 Symptoms Update: Refer to the Psychiatric Assess & History-Initial dated 01/10/18 for this H & P. Reviewed, no changes Shortly pt is 42 yo male,h/o depression, homelessness, pt does not have h/o suicidal attempts, this is pt's first psychiatric admission, pt was brought into the [facility] for evaluation of severe depression for the past two months, inability to take care of self, pt had recent UTI, since that time pt had urine and fecal incontinence, pt was ev[facility] the [facility] because of the above, but later on allowed to stay there, pt also was had head lice, pt was not able to attend the partial care program because of her hygiene. during psychiatric admission here at [facility] [place], pt got tx for lice infestation twice, hopefully successful, pt developed diarrhea, found C.Diff positive, pt was transferred to the Medical Floor on 01/11/18 for observation , antibiotic treatment. Pt was medically cleared 01/12/18, off contact isolation, pt had no diarrhea for 24 hours while on medical site, pt was transferred back to the psychiatric inpatient unit uneventfully. Pt presents to be depressed, vegetative stage, psychomotor retardation requires further evaluation and stabilization, meds adjustment and titration. pt was seen in her room, pt is poor historian, sleepy, catatonic. as per staff patient slept, no agitation or depression. this sql report writer offered discontinued Cymbalta and initiate Wellbutrin, patient is willing to make the changes. So far patient tolerates medications well, no side effects observed or reported , aims 0, no EPS. 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 Medication Change: Yes (Cymbalta discontinued, Wellbutrin started, Klonopin scheduled) Medical Record Reviewed: Yes Consults ordered or reviewed: medical follow-up Mental Status Examination - Cognitive Function Orientation: Person, Place, Situation Memory: Intact Attention: Poor Concentration: Poor Association: WNL Fund of Knowledge: Poor - Mood Mood: Depressed - Affect Affect: Constricted, Flat - Speech Speech: Appropriate (but slow low-volume underproductive) - Formal Thought Process Formal Thought Process: No Impairment - Suicidal Ideation Suicidal Ideation: No - Homicidal Ideation Homicidal Ideation: No Goal/Treatment Plan - Goal/Treatment Plan Need for Continued Stay: Remain at risks for inpatient hospitalization, Severe depression anxiety, Discharge may exacerbated symptoms, Severe functional impairment Progress Toward Problem(s) and Goals/Treatment Plan: Milieu/structure/supportive therapy Medical follow up as needed pt is off contact isolation ppatient is on antibiotics for Clostridium difficile pt was tx for lice infestation wellbutrin 775 mg by mouth daily for depression Klonopin 0.5 mg twice a day scheduled for catatonia Discontinue Cymbalta consultation for discharge plan and social issues collaterals obtained, see notes for more detailed information (briefly pt was not compliant with meds 3 weeks prior, due to insurance issues, when was on meds, was functioning well.) Family involvement Follow up on labs Will monitor closely Pt was educated about risk/benefits and alternatives of medications, coping strategies (safety plan, suicide prevention), relapse prevention, importance of follow up with psychiatrist and therapist, stay away from drugs/alcohol/smoking Estimated Date of D/C: 01/18/18
[2018-01-14] MEDS: Levothyroxine 100 MCG TAB PO SCH (06:40)
[2018-01-14] MEDS: Vancomycin 25 MG/ML PO SCH ×4 (08:00→22:24)
--- NOTE | 2018-01-14 11:36 | PCM.PYCHPN ---
Psychiatric Progress Note - Psychiatric Progress Note Patient seen today, length of contact: 30min Patient Chief Complaint: "I am bad, not feeling good" Problems Identified/Issues Discussed: Suicide/ homicide prevention, past psychiatric h/o, current psychiatric symptoms , medical problems, risk/benefits and alternatives of medications, medications compliance, coping strategies, substance abuse h/o, relapse prevention, importance of follow up with psychiatrist and therapist, discharge plan. Medical Problems: Vital Signs Temp Pulse Resp BP 01/13/18 06:45 97.5 F L 64 20 105/62 01/12/18 22:00 18 see HPI c.diff on abx h/o lice treated hypothyroidism see HPI for more detailed info Diagnostic Results: see labs from the medical admission DSM 5 Symptoms Update: Shortly pt is 42 yo male,h/o depression, homelessness, pt does not have h/o suicidal attempts, this is pt's first psychiatric admission, pt was brought into the [facility] for evaluation of severe depression for the past two months, inability to take care of self, pt had recent UTI, since that time pt had urine and fecal incontinence, [facility] because [facility] the [facility], but later on allowed to stay there, pt also was had head lice, pt was not able to attend the partial care program because of her hygiene. during psychiatric admission here at [facility] [place], pt got tx for lice infestation twice, hopefully successful, pt developed diarrhea, found C.Diff positive, pt was transferred to the Medical Floor on 01/11/18 for observation , antibiotic treatment. Pt was medically cleared 01/12/18, off contact isolation, pt had no diarrhea for 24 hours while on medical site, pt was transferred back to the psychiatric inpatient unit uneventfully. Pt presents to be depressed, vegetative stage, psychomotor retardation, pt reported that she does not feel any better. pt was seen in her room, pt is poor historian, sleepy, catatonic. as per staff patient slept, no agitation or depression. 01/12/18 discontinued Cymbalta and initiate Wellbutrin, patient tolerating changes well So far patient tolerates medications well, no side effects observed or reported , aims 0, no EPS. 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 Medication Change: Yes (meds changed 01/12/18) Medical Record Reviewed: Yes Mental Status Examination - Cognitive Function Orientation: Person, Place, Situation Memory: Intact Attention: Poor Concentration: Poor Association: WNL Fund of Knowledge: Poor - Mood Mood: Depressed - Affect Affect: Constricted, Flat - Speech Speech: Appropriate (but slow low-volume underproductive) - Formal Thought Process Formal Thought Process: No Impairment - Suicidal Ideation Suicidal Ideation: No - Homicidal Ideation Homicidal Ideation: No Goal/Treatment Plan - Goal/Treatment Plan Need for Continued Stay: Remain at risks for inpatient hospitalization, Severe depression anxiety, Discharge may exacerbated symptoms, Severe functional impairment Progress Toward Problem(s) and Goals/Treatment Plan: Milieu/structure/supportive therapy Medical follow up as needed pt is off contact isolation patient is on antibiotics for Clostridium difficile pt was tx for lice infestation wellbutrin 75 mg by mouth daily for depression Klonopin 0.5 mg twice a day scheduled for catatonia Discontinue Cymbalta 01/12/18 consultation for discharge plan and social issues collaterals obtained, see notes for more detailed information (briefly pt was not compliant with meds 3 weeks prior, due to insurance issues, when was on meds, was functioning well.) Family involvement Follow up on labs Will monitor closely Pt was educated about risk/benefits and alternatives of medications, coping strategies (safety plan, suicide prevention), relapse prevention, importance of follow up with psychiatrist and therapist, stay away from drugs/alcohol/smoking Estimated Date of D/C: 01/18/18
[2018-01-15] MEDS: Levothyroxine 100 MCG TAB PO SCH (06:15)
[2018-01-15] MEDS: Vancomycin 25 MG/ML PO SCH ×4 (08:31→21:06)
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
[2018-01-15] MEDS ORDERED: Alum-Mag Hydrox-Simethicone Susp (30 mL) PO PRN (16:32)
[2018-01-15] MEDS ORDERED: Magnesium Hydroxide Susp 30 ml UD PO PRN (16:33)
[2018-01-16] MEDS: Levothyroxine 100 MCG TAB PO SCH (06:33)
[2018-01-16] MEDS: Vancomycin 25 MG/ML PO SCH ×4 (08:00→21:48)
--- NOTE | 2018-01-16 16:01 | PCM.PYCHPN ---
Psychiatric Progress Note - Psychiatric Progress Note Patient seen today, length of contact: 30min Patient Chief Complaint: "I field the same" Problems Identified/Issues Discussed: Suicide/ homicide prevention, past psychiatric h/o, current psychiatric symptom s, medical problems, risk/benefits and alternatives of medications, medications compliance, coping strategies, substance abuse h/o, relapse prevention, importance of follow up with psychiatrist and therapist, discharge plan. Medical Problems: Vital Signs Temp Pulse Resp BP 01/13/18 06:45 97.5 F L 64 20 105/62 01/12/18 22:00 18 see HPI c.diff on abx h/o lice treated hypothyroidism see HPI for more detailed info Diagnostic Results: see labs from the medical admission DSM 5 Symptoms Update: Shortly pt is 42 yo male,h/o depression, homelessness, pt does not have h/o suicidal attempts, this is pt's first psychiatric admission, pt was brought into the [facility] for evaluation of severe depression for the past two months, inability to take care of self, pt had recent UTI, since that time pt had urine and fecal incontinence, pt was evicted from the group home because of the above, but later on allowed to stay there, pt also was had head lice, pt was not able to attend the partial care program because of her hygiene. [place] [facility] [place] pt got tx for lice infestation twice, hopefully successful, pt developed diarrhea, found C.Diff positive, pt was transferred to the Medical Floor on 01/11/18 for observation , antibiotic treatment. Pt was medically cleared 01/12/18, off contact isolation, pt had no diarrhea for 24 hours while on medical site, pt was transferred back to the psychiatric inpatient unit uneventfully. patient was seen at the treatment team meeting, patient presented with psychomotor retardation, but with some improvement, pt was able to walk today, was more spontaneous with her answers. Pt presents to be depressed, but affect was little more reactive. as per staff patient sleeps a lot, no agitation or depression. 01/12/18 discontinued Cymbalta and initiate Wellbutrin, patient tolerating changes well So far patient tolerates medications well, no side effects observed or reported, aims 0, no EPS. 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 Medication Change: Yes (meds changed 01/12/18) Medical Record Reviewed: Yes Mental Status Examination - Cognitive Function Orientation: Person, Place, Situation Memory: Intact Attention: Poor Concentration: Poor Association: WNL Fund of Knowledge: Poor - Mood Mood: Depressed - Affect Affect: Constricted, Flat - Speech Speech: Appropriate (but slow low-volume underproductive) - Formal Thought Process Formal Thought Process: No Impairment - Suicidal Ideation Suicidal Ideation: No - Homicidal Ideation Homicidal Ideation: No Goal/Treatment Plan - Goal/Treatment Plan Need for Continued Stay: Remain at risks for inpatient hospitalization, Severe depression anxiety, Discharge may exacerbated symptoms, Severe functional impairment Progress Toward Problem(s) and Goals/Treatment Plan: Milieu/structure/supportive therapy Medical follow up as needed pt is off contact isolation patient is on antibiotics for Clostridium difficile pt was tx for lice infestation wellbutrin 100mg by mouth daily for depression Klonopin 0.5 mg twice a day scheduled for catatonia Discontinue Cymbalta 01/12/18 ECT treatment was offered but patient was not able to make decision as of now consultation for discharge plan and social issues collaterals obtained, see notes for more detailed information (briefly pt was not compliant with meds 3 weeks prior, due to insurance issues, when was on meds, was functioning well.) Family involvement Follow up on labs Will monitor closely Pt was educated about risk/benefits and alternatives of medications, coping strategies (safety plan, suicide prevention), relapse prevention, importance of follow up with psychiatrist and therapist, stay away from drugs/alcohol/smoking Estimated Date of D/C: 01/18/18
[2018-01-17] MEDS: Levothyroxine 100 MCG TAB PO SCH (06:36)
[2018-01-17] MEDS: Vancomycin 25 MG/ML PO SCH ×4 (09:06→21:16)
--- NOTE | 2018-01-17 17:09 | PCM.PYCHPN ---
Psychiatric Progress Note - Psychiatric Progress Note Patient seen today, length of contact: 30min Patient Chief Complaint: "I am little better, but still very depressed" Problems Identified/Issues Discussed: Suicide/ homicide prevention, past psychiatric h/o, current psychiatric symptoms, medical problems, risk/benefits and alternatives of medications, medications compliance, coping strategies, substance abuse h/o, relapse prevention, importance of follow up with psychiatrist and therapist, discharge plan. Medical Problems: Vital Signs Temp Pulse Resp BP 01/13/18 06:45 97.5 F L 64 20 105/62 01/12/18 22:00 18 see HPI c.diff on abx h/o lice treated hypothyroidism see HPI for more detailed info Diagnostic Results: see labs from the medical admission DSM 5 Symptoms Update: Shortly pt is 42 yo male,h/o depression, homelessness, pt does not have h/o suicidal attempts, this is pt's first psychiatric admission, pt was brought into the [facility] for evaluation of severe depression for the past two months, inability to take care of self, pt had recent UTI, since that time pt had urine and fecal incontinence, [facility] because [facility], but later on allowed to stay there, pt also was had head lice, pt was not able to attend the partial care program because of her hygiene. during psychiatric admission here at [facility] [place], pt got tx for lice infestation twice, hopefully successful, pt developed diarrhea, found C.Diff positive, pt was transferred to the Medical Floor on 01/11/18 for observation , antibiotic treatment. Pt was medically cleared 01/12/18, off contact isolation, pt had no diarrhea for 24 hours while on medical site, pt was transferred back to the psychiatric inpatient unit uneventfully. patient was seen at the treatment team meeting, patient presented with psychomotor retardation, but with some improvement, pt was able to walk today, was more spontaneous with her answers. but pt complaining "depressed and weak still", pt still has some psychomotor retardation. Pt presents to be depressed, but affect was little more reactive. as per staff patient sleeps a lot, no agitation or depression. wellbutrin increased today So far patient tolerates medications well, no side effects observed or reported, aims 0, no EPS. 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 Medication Change: Yes (Wellbutrin increased) Medical Record Reviewed: Yes Consults ordered or reviewed: medical follow-up Mental Status Examination - Cognitive Function Orientation: Person, Place, Situation Memory: Intact Attention: Poor Concentration: Poor Association: WNL Fund of Knowledge: Poor - Mood Mood: Depressed - Affect Affect: Constricted, Flat - Speech Speech: Appropriate (but slow low-volume underproductive) - Formal Thought Process Formal Thought Process: No Impairment - Suicidal Ideation Suicidal Ideation: No - Homicidal Ideation Homicidal Ideation: No Goal/Treatment Plan - Goal/Treatment Plan Need for Continued Stay: Remain at risks for inpatient hospitalization, Severe depression anxiety, Discharge may exacerbated symptoms, Severe functional impairment Progress Toward Problem(s) and Goals/Treatment Plan: Milieu/structure/supportive therapy Medical follow up as needed pt is off contact isolation patient is on antibiotics for Clostridium difficile pt was tx for lice infestation wellbutrin 100mg by mouth tid for depression Klonopin 0.5 mg twice a day scheduled for catatonia Discontinue Cymbalta 01/12/18 ECT treatment was offered but patient was not able to make decision as of now consultation for discharge plan and social issues collaterals obtained, see notes for more detailed information (briefly pt was not compliant with meds 3 weeks prior, due to insurance issues, when was on meds, was functioning well.) Family involvement Follow up on labs Will monitor closely Pt was educated about risk/benefits and alternatives of medications, coping strategies (safety plan, suicide prevention), relapse prevention, importance of follow up with psychiatrist and therapist, stay away from drugs/alcohol/smoking Estimated Date of D/C: 01/22/18
[2018-01-18] MEDS: Levothyroxine 100 MCG TAB PO SCH (07:56)
[2018-01-18] MEDS: Vancomycin 25 MG/ML PO SCH ×4 (08:00→22:17)
--- NOTE | 2018-01-18 16:28 | PCM.PYCHPN ---
Psychiatric Progress Note - Psychiatric Progress Note Patient seen today, length of contact: 30min Patient Chief Complaint: "I feel depressed, no good" Problems Identified/Issues Discussed: Suicide/ homicide prevention, past psychiatric h/o, current psychiatric symptoms, medical problems, risk/benefits and alternatives of medications, medications compliance, coping strategies, substance abuse h/o, relapse prevention, importance of follow up with psychiatrist and therapist, discharge plan. Medical Problems: Vital Signs Temp Pulse Resp BP 01/13/18 06:45 97.5 F L 64 20 105/62 01/12/18 22:00 18 see HPI c.diff on abx h/o lice treated hypothyroidism see HPI for more detailed info Diagnostic Results: see labs from the medical admission DSM 5 Symptoms Update: Shortly pt is 42 yo male,h/o depression, homelessness, pt does not have h/o suicidal attempts, this is pt's first psychiatric admission, pt was brought into the [facility] for evaluation of severe depression for the past two months, inability to take care of self, pt had recent UTI, since that time pt had urine and fecal incontinence, pt was evicted from the snf because of the above, but later on allowed to stay there, pt also was had head lice, pt was not able to attend the partial care program because of her hygiene. [place] [facility] [place] got tx for lice infestation twice, hopefully successful, pt developed diarrhea, found C.Diff positive, pt was transferred to the Medical Floor on 01/11/18 for observation , antibiotic treatment. Pt was medically cleared 01/12/18, off contact isolation, pt had no diarrhea for 24 hours while on medical site, pt was transferred back to the psychiatric inpatient unit uneventfully. patient was seen at the treatment team meeting, patient presented with psychomotor retardation, but with some improvement, pt was able to walk today, was more spontaneous with her answers. but pt complaining "depressed and weak still", pt still has some psychomotor retardation. pt complain of diarrhea, discussed with medical team Dr. Jessica, suggested infectious disease consultation, will call for consult. Pt presents to be depressed, but affect was little more reactive. as per staff patient sleeps a lot, no agitation or depression. wellbutrin increased yesterrday So far patient tolerates medications well, no side effects observed or reported, aims 0, no EPS. 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 Medication Change: Yes (Wellbutrin increased) Medical Record Reviewed: Yes Consults ordered or reviewed: medical follow-up ID consult called Mental Status Examination - Cognitive Function Orientation: Person, Place, Situation Memory: Intact Attention: Poor Concentration: Poor Association: WNL Fund of Knowledge: Poor - Mood Mood: Depressed - Affect Affect: Constricted, Flat - Speech Speech: Appropriate (but slow low-volume underproductive) - Formal Thought Process Formal Thought Process: No Impairment - Suicidal Ideation Suicidal Ideation: No - Homicidal Ideation Homicidal Ideation: No Goal/Treatment Plan - Goal/Treatment Plan Need for Continued Stay: Remain at risks for inpatient hospitalization, Severe depression anxiety, Discharge may exacerbated symptoms, Severe functional impairment Progress Toward Problem(s) and Goals/Treatment Plan: Milieu/structure/supportive therapy Medical follow up as needed pt is off contact isolation patient is on antibiotics for Clostridium difficile, will call for ID consult pt still has diarrhea pt was tx for lice infestation wellbutrin 100mg by mouth tid for depression Klonopin 0.5 mg twice a day scheduled for catatonia ECT treatment was offered but patient was not able to make decision as of now consultation for discharge plan and social issues collaterals obtained, see notes for more detailed information (briefly pt was not compliant with meds 3 weeks prior, due to insurance issues, when was on meds, was functioning well.) Family involvement Follow up on labs Will monitor closely Pt was educated about risk/benefits and alternatives of medications, coping strategies (safety plan, suicide prevention), relapse prevention, importance of follow up with psychiatrist and therapist, stay away from drugs/alcohol/smoking Estimated Date of D/C: 01/22/18
--- NOTE | 2018-01-18 17:24 | CP.PCM.PN ---
<Saskia Morin - Last Filed: 01/18/18 17:34> Subjective - Date & Time of Evaluation Date of Evaluation: 01/18/18 Time of Evaluation: 15:00 - Subjective Subjective: Patient was seen and examined this afternoon. Patient states that she is continuing to have diarrhea. She states she has a small amount of diarrhea about 2x/day and it comes on suddenly. She reports she has had loose stools "for awhile." She denies nausea and vomiting and is tolerating a regular diet. She denies abdominal pain. Objective - Vital Signs/Intake and Output Vital Signs (last 24 hours): Temp Pulse Resp BP Pulse Ox 97.6 F 74 18 109/69 01/18/18 06:41 01/18/18 15:29 01/18/18 06:41 01/18/18 15:29 - Medications Medications: Current Medications Acetaminophen (Tylenol 325mg Tab) 650 mg PO Q6H PRN PRN Reason: Pain, moderate (4-7) Last Admin: 01/17/18 22:03 Dose: 650 mg Acetaminophen (Tylenol 325mg Tab) 650 mg PO Q6H PRN PRN Reason: Pain, moderate (4-7) Al Hydrox/Mg Hydrox/Simethicone (Maalox Plus 30 Ml) 30 ml PO DAILY PRN PRN Reason: Indigestion / Heartburn Bupropion HCl (Wellbutrin) 100 mg PO TID [facility] Last Admin: 01/18/18 13:11 Dose: 100 mg Clonazepam (Klonopin) 0.5 mg PO BID [facility]; Protocol Last Admin: 01/18/18 07:56 Dose: 0.5 mg Famotidine (Pepcid) 20 mg PO 1000,2200 [facility] Last Admin: 01/18/18 10:41 Dose: 20 mg Gabapentin (Neurontin) 300 mg PO TID [facility]; Protocol Last Admin: 01/18/18 13:11 Dose: 300 mg Levothyroxine Sodium (Synthroid) 100 mcg PO 0600 [facility] Last Admin: 01/18/18 07:56 Dose: 100 mcg Magnesium Hydroxide (Milk Of Magnesia) 30 ml PO DAILY PRN PRN Reason: Constipation Ondansetron HCl (Zofran Tab) 4 mg PO Q8H PRN PRN Reason: Nausea/Vomiting Oxcarbazepine (Trileptal) 150 mg PO BID [facility]; Protocol Last Admin: 01/18/18 07:56 Dose: 150 mg Oxcarbazepine (Trileptal) 300 mg PO HS [facility]; Protocol Last Admin: 01/17/18 21:15 Dose: 300 mg Vancomycin HCl (Vancocin 25 Mg/Ml (Oral Use)) 125 mg PO QID [facility]; Protocol Last Admin: 01/18/18 13:11 Dose: 125 mg - Constitutional Appears: Non-toxic, No Acute Distress - Head Exam Head Exam: ATRAUMATIC, NORMAL INSPECTION - Eye Exam Eye Exam: EOMI, Normal appearance - ENT Exam ENT Exam: Mucous Membranes Moist, Normal Exam - Neck Exam Neck Exam: Normal Inspection - Respiratory Exam Respiratory Exam: Clear to Ausculation Bilateral, NORMAL BREATHING PATTERN - Cardiovascular Exam Cardiovascular Exam: REGULAR RHYTHM, +S1, +S2 - GI/Abdominal Exam GI & Abdominal Exam: Soft, Normal Bowel Sounds. absent: Tenderness - Rectal Exam Rectal Exam: Deferred - Extremities Exam Extremities Exam: absent: Pedal Edema, Tenderness Additional comments: scabs, thick hair - Back Exam Back Exam: NORMAL INSPECTION - Neurological Exam Neurological Exam: Alert, Awake, CN II-XII Intact Additional comments: slow gait - Psychiatric Exam Psychiatric exam: Depressed, Flat Affect - Skin Skin Exam: Normal Color, Warm Additional comments: male-pattern hair on face Assessment and Plan - Assessment and Plan (Free Text) Assessment: Patient is a 42 yo female currently admitted on the psychiatry unit for depression. She is currently on oral vancomycin for C. diff. She continues to complain of intermittent diarrhea. Plan: Diarrhea- likely 2/2 C. diff - CBC in AM - BMP in AM - C. diff Ag positive, toxin negative - Stool leukocytes negative - FOBT negative - Vancomycin 125 mg PO QID (started 01/11) Hypothyroidism - TSH elevated (6.8) - T4, free T4, T3 wnl - Continue Synthroid 100 mcg PO daily Depression vs schizoaffective disorder - Management as per psychiatry Case was discussed with Dr. Jessica. <Deneen Jessica - Last Filed: 01/21/18 07:03> Objective - Vital Signs/Intake and Output Vital Signs (last 24 hours): Temp Pulse Resp BP Pulse Ox 97.5 F L 79 20 110/67 01/20/18 06:54 01/20/18 16:00 01/20/18 06:54 01/20/18 16:00 - Medications Medications: Current Medications Acetaminophen (Tylenol 325mg Tab) 650 mg PO Q6H PRN PRN Reason: Pain, moderate (4-7) Last Admin: 01/17/18 22:03 Dose: 650 mg Acetaminophen (Tylenol 325mg Tab) 650 mg PO Q6H PRN PRN Reason: Pain, moderate (4-7) Last Admin: 01/20/18 12:42 Dose: 650 mg Al Hydrox/Mg Hydrox/Simethicone (Maalox Plus 30 Ml) 30 ml PO DAILY PRN PRN Reason: Indigestion / Heartburn Bupropion HCl (Wellbutrin) 100 mg PO TID [facility] Last Admin: 01/20/18 17:25 Dose: 100 mg Clonazepam (Klonopin) 0.5 mg PO BID [facility]; Protocol Last Admin: 01/20/18 15:13 Dose: 0.5 mg Famotidine (Pepcid) 20 mg PO 1000,2200 [facility] Last Admin: 01/20/18 22:50 Dose: 20 mg Gabapentin (Neurontin) 300 mg PO TID [facility]; Protocol Last Admin: 01/20/18 17:24 Dose: 300 mg Levothyroxine Sodium (Synthroid) 100 mcg PO 0600 [facility] Last Admin: 01/21/18 06:48 Dose: 100 mcg Magnesium Hydroxide (Milk Of Magnesia) 30 ml PO DAILY PRN PRN Reason: Constipation Ondansetron HCl (Zofran Tab) 4 mg PO Q8H PRN PRN Reason: Nausea/Vomiting Oxcarbazepine (Trileptal) 150 mg PO BID [facility]; Protocol Last Admin: 01/20/18 17:33 Dose: 150 mg Oxcarbazepine (Trileptal) 300 mg PO HS [facility]; Protocol Last Admin: 01/20/18 22:49 Dose: 300 mg Vancomycin HCl (Vancocin 25 Mg/Ml (Oral Use)) 125 mg PO QID [facility]; Protocol Last Admin: 01/20/18 22:50 Dose: 125 mg - Labs Labs: 01/19/18 07:30 01/19/18 07:30 Attending/Attestation - Attestation I have personally seen and examined this patient.: Yes I have fully participated in the care of the patient.: Yes I have reviewed all pertinent clinical information, including history, physical exam and plan: Yes Notes (Text): Patient seen and examined by me at 2:30 PM with resident 01/18/18. Case including HPI, physical exam, and assessment and plan discussed with resident. Agree with above with following additions/corrections. Patient is a 42-year-old female past medical history significant for depression, schizoaffective disorder, and hypothyroidism that presented to the emergency room with diarrhea. Patient was found to have C. difficile and was placed on oral vancomycin. Patient was subsequently admitted to psychiatric unit for evaluation of severe depression for 2 months and inability take care for self. We were asked to see the patient again for diarrhea. Patient states that she is feeling okay. She states that she is having diarrhea. However, she states that this has improved since admission. States that she had 2 episodes today that were very small. She denies any associated blood in the stool. She does have some nausea but that is also improving. No vomiting or abdominal pain. Patient is tolerating diet. No headaches or dizziness. No fevers or chills. No chest pain or shortness of breath. No dysuria. Physical exam: Gen: Awake and alert sitting up in bed in no acute distress HEENT: Normocephalic, atraumatic. Extraocular muscles intact, pupils equal reactive. No scleral icterus. Oropharynx is pink and moist. Neck is supple. Cardiovascular: Normal rhythm. Normal S1, S2. No murmurs, rubs, or gallops appreciated Pulmonary: Normal respiratory effort. No rhonchi, rales, or wheezing appreciated. Gastrointestinal: Soft, nontender. Nondistended. Positive bowel sounds all 4 quadrants, no guarding. Musculoskeletal: Moves all extremities. No calf tenderness. No edema appreciated. Central nervous system: Awake and alert Dermatologic: Skin warm and dry Assessment and plan: Patient is a 42-year-old female past medical history significant for depression, schizoaffective disorder, and hypothyroidism that presented to the emergency room with diarrhea. Patient was found to have C. difficile and was placed on oral vancomycin. Patient was subsequently admitted to psychiatric unit for evaluation of severe depression for 2 months and inability take care for self. We were asked to see the patient again for diarrhea. 1. Diarrhea secondary to C. difficile. This is improving. Continue oral vancomycin. Recommend consult stating infectious disease doctor if diarrhea continues or worsens. Will check BMP for any electrolyte imbalance. 2. Hypothyroidism. Continue Synthroid 3. Depression versus schizoaffective disorder. Care as per primary team. Case was discussed in detail with the patient regarding current diagnosis and treatment plan. Thank you for allowing us to participate in the care of your patient. Patient's diarrhea is improving. We will sign off. Please reconsult if needed.
[2018-01-19] MEDS: Levothyroxine 100 MCG TAB PO SCH (07:12)
[2018-01-19 08:02] LABS: HEMOGLOBIN 12.4 g/dL (12.0-16.0); MEAN CELL VOLUME 93.3 fl (80.0-105.0); MEAN CORPUSCULAR HEMOGLOBIN 30.6 pg (25.0-35.0); MEAN CORPUSCULAR HGB CONC 32.8 g/dl (31.0-37.0); MEAN PLATELET VOLUME 9.2 fl (7.0-11.0); RBC 4.05 10^6/uL (3.5-6.1); RED CELL DISTRIBUTION WIDTH 16.7 % (11.5-14.5); WHITE BLOOD COUNT 10.8 10^3/ul (4.5-11.0)
[2018-01-19 08:16] LABS: BLOOD UREA NITROGEN 13 mg/dL (7-21); GFR NON-AFRICAN AMERICAN > 60
--- NOTE | 2018-01-19 08:24 | CP.PCM.CON ---
<Ilana Ku - Last Filed: 01/19/18 12:10> History of Present Illness - History of Present Illness History of Present Illness: PGY-3 resident ID consult note for Dr Daugherty Reason for consult: diarrhea on vanco po Patient is a 42 y/o female with PMHx of depression, schizoaffective disorder, hypothyroidism who is currently being managed on psych floor for her psychiatric conditions, and ID is being consulted for possible diarrhea. Patient treated with antibiotics due to uti at an urgent care center, and had developed diarrhea over a week ago. At the time stool c. diff was sent revealing positive antigen and negative toxin. Since patient was symptomatic, patient was started on po vanco, today would be day# 8. Patient states she had 2 loose bowel movement yesterday, non bloody, non bilious. Have not had any bowel movement today yet. No fever or chills, no nausea, vomiting or diarrhea. No abdominal pain. PMH: depression, schizoaffective disorder, hypothyroidism PSH: none Meds: as per [facility] Allergy: Keppra FH: non contributory Social history: Denies alcohol, tobacco, illicit drug use. Review of Systems - Constitutional Constitutional: absent: Chills, Fatigue, Fever, Headache, Lethargy - EENT Eyes: absent: Blurred Vision Ears: absent: Disequilibrium, Dizziness Nose/Mouth/Throat: absent: Epistaxis, Nasal Congestion - Cardiovascular Cardiovascular: absent: Chest Pain, Chest Pain at Rest, Dyspnea - Respiratory Respiratory: absent: Cough, Dyspnea, Hemoptysis, Wheezing, Stridor - Gastrointestinal Gastrointestinal: Loose Stools (last was yesterday.). absent: Abdominal Pain, Belching, Bloating, Constipation, Diarrhea (no diarhea today.), Dyspepsia, Dysphagia, Nausea, Vomiting - Genitourinary Genitourinary: absent: Dysuria, Urinary Incontinence, Freq UTI - Musculoskeletal Musculoskeletal: absent: Back Pain, Muscle Weakness - Integumentary Integumentary: absent: Erythema - Neurological Neurological: absent: Disequilibrium, Dizziness, Numbness, Weakness - Psychiatric Psychiatric: Anxiety, Depression - Endocrine Endocrine: absent: Fatigue, Palpitations - Hematologic/Lymphatic Hematologic: absent: Easy Bleeding, Easy Bruising, Lymphadenopathy Past Patient History - Infectious Disease Hx of Infectious Diseases: None - Tetanus Immunizations Tetanus Immunization: Unknown - Past Medical History & Family History Past Medical History?: Yes - Past Social History Smoking Status: Never Smoked Alcohol: None Drugs: Denies Home Situation {Lives}: Homeless - PULMONARY Other/Comment: C. diff stool - NEUROLOGICAL Hx Seizures: Yes - ENDOCRINE/METABOLIC Hx Hypothyroidism: Yes - MUSCULOSKELETAL/RHEUMATOLOGICAL Hx Falls: No - PSYCHIATRIC Hx Substance Use: No - ANESTHESIA Hx Anesthesia: No Meds Allergies/Adverse Reactions: Allergies Allergy/AdvReac Type Severity Reaction Status Date / Time keppra Allergy ITCHING Uncoded 01/10/18 05:43 - Medications Medications: Current Medications Acetaminophen (Tylenol 325mg Tab) 650 mg PO Q6H PRN PRN Reason: Pain, moderate (4-7) Last Admin: 01/17/18 22:03 Dose: 650 mg Acetaminophen (Tylenol 325mg Tab) 650 mg PO Q6H PRN PRN Reason: Pain, moderate (4-7) Al Hydrox/Mg Hydrox/Simethicone (Maalox Plus 30 Ml) 30 ml PO DAILY PRN PRN Reason: Indigestion / Heartburn Bupropion HCl (Wellbutrin) 100 mg PO TID [facility] Last Admin: 01/19/18 08:06 Dose: 100 mg Clonazepam (Klonopin) 0.5 mg PO BID [facility]; Protocol Last Admin: 01/19/18 08:07 Dose: 0.5 mg Famotidine (Pepcid) 20 mg PO 1000,2200 [facility] Last Admin: 01/18/18 22:17 Dose: 20 mg Gabapentin (Neurontin) 300 mg PO TID [facility]; Protocol Last Admin: 01/19/18 08:06 Dose: 300 mg Levothyroxine Sodium (Synthroid) 100 mcg PO 0600 [facility] Last Admin: 01/19/18 07:12 Dose: 100 mcg Magnesium Hydroxide (Milk Of Magnesia) 30 ml PO DAILY PRN PRN Reason: Constipation Ondansetron HCl (Zofran Tab) 4 mg PO Q8H PRN PRN Reason: Nausea/Vomiting Oxcarbazepine (Trileptal) 150 mg PO BID [facility]; Protocol Last Admin: 01/19/18 08:06 Dose: 150 mg Oxcarbazepine (Trileptal) 300 mg PO HS [facility]; Protocol Last Admin: 01/18/18 22:17 Dose: 300 mg Vancomycin HCl (Vancocin 25 Mg/Ml (Oral Use)) 125 mg PO QID [facility]; Protocol Last Admin: 01/18/18 22:17 Dose: 125 mg Physical Exam - Constitutional Appears: No Acute Distress - Head Exam Head Exam: ATRAUMATIC, NORMAL INSPECTION, NORMOCEPHALIC - Eye Exam Eye Exam: EOMI, Normal appearance, PERRL. absent: Scleral icterus Pupil Exam: NORMAL ACCOMODATION - ENT Exam ENT Exam: Mucous Membranes Moist - Neck Exam Neck exam: Positive for: Normal Inspection - Respiratory Exam Respiratory Exam: Clear to Auscultation Bilateral, NORMAL BREATHING PATTERN. absent: Rales, Rhonchi, Wheezes, Respiratory Distress, Stridor - Cardiovascular Exam Cardiovascular Exam: REGULAR RHYTHM, RRR, +S1. absent: Systolic Murmur - GI/Abdominal Exam GI & Abdominal Exam: Normal Bowel Sounds, Soft. absent: Distended, Firm, Rebound, Rigid, Tenderness - Extremities Exam Extremities exam: Positive for: normal inspection. Negative for: pedal edema - Back Exam Back exam: NORMAL INSPECTION - Neurological Exam Neurological exam: Alert, Oriented x3 - Psychiatric Exam Psychiatric exam: Normal Affect, Normal Mood - Skin Skin Exam: Dry, Normal Color, Warm Results - Vital Signs Recent Vital Signs: Last Vital Signs Temp 98.1 F 01/19/18 06:56 Pulse 70 01/19/18 06:56 Resp 19 01/19/18 06:56 BP 111/65 01/19/18 06:56 Pulse Ox - Labs Result Diagrams: 01/19/18 07:30 01/19/18 07:30 Labs: Laboratory Results - last 24 hr 01/19/18 01/19/18 07:30 07:30 WBC 10.8 RBC 4.05 Hgb 12.4 D Hct 37.8 MCV 93.3 MCH 30.6 MCHC 32.8 RDW 16.7 H Plt Count 318 MPV 9.2 Sodium 139 Potassium 4.0 Chloride 103 Carbon Dioxide 28 Anion Gap 12 BUN 13 Creatinine 1.0 Est GFR ( Amer) > 60 Est GFR (Non-Af Amer) > 60 Random Glucose 89 Calcium 9.0 Assessment & Plan - Assessment and Plan (Free Text) Assessment: Patient is a 42 y/o female with PMHx of depression, schizoaffective disorder, hypothyroidism, being treated with symptomatic antigen positive c. diff , toxin negative, complaining of loose bowel movement x2 yesterday. No bowel movement today. Already on po vanco. Plan: All the vitals and labs reviewed. Denies watery diarrhea. Patient to continue with po vancomycin for a total of 14 days. Continue psych treatment as per psych team. Patient seen, examined case discussed with Dr. Daugherty. - Date & Time Date: 01/19/18 Time: 11:00 <Garcia Daugherty - Last Filed: 01/19/18 18:17> Meds - Medications Medications: Current Medications Acetaminophen (Tylenol 325mg Tab) 650 mg PO Q6H PRN PRN Reason: Pain, moderate (4-7) Last Admin: 01/17/18 22:03 Dose: 650 mg Acetaminophen (Tylenol 325mg Tab) 650 mg PO Q6H PRN PRN Reason: Pain, moderate (4-7) Al Hydrox/Mg Hydrox/Simethicone (Maalox Plus 30 Ml) 30 ml PO DAILY PRN PRN Reason: Indigestion / Heartburn Bupropion HCl (Wellbutrin) 100 mg PO TID [facility] Last Admin: 01/19/18 13:48 Dose: 100 mg Clonazepam (Klonopin) 0.5 mg PO BID [facility]; Protocol Last Admin: 01/19/18 15:01 Dose: 0.5 mg Famotidine (Pepcid) 20 mg PO 1000,2200 [facility] Last Admin: 01/19/18 10:58 Dose: 20 mg Gabapentin (Neurontin) 300 mg PO TID [facility]; Protocol Last Admin: 01/19/18 14:48 Dose: 300 mg Levothyroxine Sodium (Synthroid) 100 mcg PO 0600 [facility] Last Admin: 01/19/18 07:12 Dose: 100 mcg Magnesium Hydroxide (Milk Of Magnesia) 30 ml PO DAILY PRN PRN Reason: Constipation Ondansetron HCl (Zofran Tab) 4 mg PO Q8H PRN PRN Reason: Nausea/Vomiting Oxcarbazepine (Trileptal) 150 mg PO BID [facility]; Protocol Last Admin: 01/19/18 15:00 Dose: 150 mg Oxcarbazepine (Trileptal) 300 mg PO HS [facility]; Protocol Last Admin: 01/18/18 22:17 Dose: 300 mg Vancomycin HCl (Vancocin 25 Mg/Ml (Oral Use)) 125 mg PO QID [facility]; Protocol Last Admin: 01/19/18 14:47 Dose: 125 mg Results - Vital Signs Recent Vital Signs: Last Vital Signs Temp 98.1 F 01/19/18 06:56 Pulse 73 01/19/18 15:52 Resp 19 01/19/18 06:56 BP 125/83 01/19/18 15:52 Pulse Ox - Labs Result Diagrams: 01/19/18 07:30 01/19/18 07:30 Labs: Laboratory Results - last 24 hr 01/19/18 01/19/18 07:30 07:30 WBC 10.8 RBC 4.05 Hgb 12.4 D Hct 37.8 MCV 93.3 MCH 30.6 MCHC 32.8 RDW 16.7 H Plt Count 318 MPV 9.2 Sodium 139 Potassium 4.0 Chloride 103 Carbon Dioxide 28 Anion Gap 12 BUN 13 Creatinine 1.0 Est GFR ( Amer) > 60 Est GFR (Non-Af Amer) > 60 Random Glucose 89 Calcium 9.0 Assessment & Plan - Assessment and Plan (Free Text) Plan: Infectious Diseases Attending Physician Addendum Patient seen, examined, discussed with bio medical technician. I have reviewed the pertinent clinical information. I agree with the above findings, assessment and plan and in addition, continue PO Vancomycin (Day 8) for C. diff. associated diarrhea, to complete 10-14 days. Patient with loose bowel movement, non-watery, which means patient is clinically better.
--- NOTE | 2018-01-19 10:34 | PCM.BM ---
<Melvin Luna - Last Filed: 01/19/18 10:32> Treatment Plan Problems - Problems identified on initial assessmt Ineffective Coping skills Date Initiated: 01/12/18 Time Initiated: 23:10 Assessment reference: NA Status: Active medication non-adherence Date Initiated: 01/12/18 Time Initiated: 23:15 Assessment reference: NA Status: Active Self Care deficit Date Initiated: 01/12/18 Time Initiated: 23:15 Assessment reference: NA Status: Active Treatment assets and liabiliti Patient Assests: ADL independent, good support system - Milieu Protocol Milieu Narrative: -c/w current tx and plan -No new lab results thus far -Vitals reviewed and noted below: Family Contact Family involvement: Famliy/SO not involved - Outside Agency [facility] Care involvment: Following patient during stay, Information-sharing Agency contact name: [facility] Agency contact number: Andie Chand(C:[phone] H:[phone]) Discharge/Continuing Care - Treatment Team Participation Patient/Family/SO Statement: -c/w current tx and plan -No new lab results thus far -Vitals reviewed and noted below: Treatment Plan Review - Problem Ineffective Coping skills Time Initiated: 23:10 (adl improved) Progress toward outcomes: improved medication non-adherence Time Initiated: 23:15 (compliant with meds) Progress toward outcomes: improved Self Care deficit Time Initiated: 23:15 (improved image ) Progress toward outcomes: improved - Discharge / Continuing Care Health Needs: Recreational/Social <Tabatha Umana - Last Filed: 01/19/18 17:17> - Diagnosis (1) MDD (major depressive disorder) Status: Acute Interventions: 01/19/18 17:17 better no SI/HI affect is brighter coping better good appetite and sleep. (2) Hypothyroidism Status: Chronic Interventions: 01/19/18 17:17 pt was seen by medical team
[2018-01-19] MEDS: Vancomycin 25 MG/ML PO SCH ×4 (10:57→21:56)
--- NOTE | 2018-01-19 17:22 | PCM.PYCHPN ---
Psychiatric Progress Note - Psychiatric Progress Note Patient seen today, length of contact: 30min Patient Chief Complaint: "I feel little better" Problems Identified/Issues Discussed: Suicide/ homicide prevention, past psychiatric h/o, current psychiatric sym ptoms, medical problems, risk/benefits and alternatives of medications, medications compliance, coping strategies, substance abuse h/o, relapse prevention, importance of follow up with psychiatrist and therapist, discharge plan. Medical Problems: Vital Signs Temp Pulse Resp BP 01/13/18 06:45 97.5 F L 64 20 105/62 01/12/18 22:00 18 see HPI c.diff on abx h/o lice treated hypothyroidism see HPI for more detailed info Diagnostic Results: see labs from the medical admission DSM 5 Symptoms Update: Shortly pt is 42 yo male,h/o depression, homelessness, pt does not have h/o suicidal attempts, this is pt's first psychiatric admission, pt was brought into the [facility] for evaluation of severe depression for the past two months, inability to take care of self, pt had recent UTI, since that time pt had urine and fecal incontinence, pt was evicted from the nursing home because of the above, but later on allowed to stay there, pt also was had head lice, pt was not able to attend the partial care program because of her hygiene. [place] [facility] [place] got tx for lice infestation twice, hopefully successful, pt developed diarrhea, found C.Diff positive, pt was transferred to the Medical Floor on 01/11/18 for observation , antibiotic treatment. Pt was medically cleared 01/12/18, off contact isolation, pt had no diarrhea for 24 hours while on medical site, pt was transferred back to the psychiatric inpatient unit uneventfully. patient was seen at the treatment team meeting, patient presented better, pt was visited by her telehealth case manager, pt was upset that after TIFFANY pt needs to go back to the nursing home. Pt was provided with emotional support and empathic listening, patient was advised to stay on positive changes such as overall presentation, patient is able to walk, diarrhea is subsided, no lice infestation, patient is socializing with others. pt was receptive, reported to feel better overall. pt complain of diarrhea, discussed with medical team Dr. Jessica, Infectious disease evaluated pt, , awaiting for official report. as per staff patient sleeps a lot, no agitation or depression. So far patient tolerates medications well, no side effects observed or reported, aims 0, no EPS. 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 Medication Change: No ( ) Medical Record Reviewed: Yes Mental Status Examination - Cognitive Function Orientation: Person, Place, Situation Memory: Intact Attention: Poor (some improvement) Concentration: Poor (ome improvement) Association: WNL Fund of Knowledge: Poor - Mood Mood: Depressed (some improvement) - Affect Affect: Constricted (ssome improvement), Flat - Speech Speech: Appropriate (but slow low-volume underproductive) - Formal Thought Process Formal Thought Process: No Impairment - Suicidal Ideation Suicidal Ideation: No - Homicidal Ideation Homicidal Ideation: No Goal/Treatment Plan - Goal/Treatment Plan Need for Continued Stay: Remain at risks for inpatient hospitalization, Severe depression anxiety, Discharge may exacerbated symptoms, Severe functional impairment Progress Toward Problem(s) and Goals/Treatment Plan: Milieu/structure/supportive therapy Medical follow up as needed pt is off contact isolation patient is on antibiotics for Clostridium difficile, will call for ID consult pt still has diarrhea pt was tx for lice infestation wellbutrin 100mg by mouth tid for depression Klonopin 0.5 mg twice a day scheduled for catatonia ECT treatment was offered but patient was not able to make decision as of now consultation for discharge plan and social issues collaterals obtained, see notes for more detailed information (briefly pt was not compliant with meds 3 weeks prior, due to insurance issues, when was on meds, was functioning well.) Family involvement Follow up on labs Will monitor closely Pt was educated about risk/benefits and alternatives of medications, coping strategies (safety plan, suicide prevention), relapse prevention, importance of follow up with psychiatrist and therapist, stay away from drugs/alcohol/smoking Estimated Date of D/C: 01/22/18
[2018-01-20] MEDS: Levothyroxine 100 MCG TAB PO SCH (06:51)
--- NOTE | 2018-01-20 08:36 | PCM.PYCHPN ---
Psychiatric Progress Note - Psychiatric Progress Note Patient seen today, length of contact: 30min Problems Identified/Issues Discussed: I reviewed assessment and recent notes. Patient was interviewed at bedside this morning. Her appearance is a little unkempt and affect is constricted. Patient reports continued depression and she appears sad and preoccupied. She denies any new concerns overnight and indicates that she slept "okay". Communication is wnl and she can express her needs. Patient has a headache but denies any other discomfort or pain. Staff notes indicate that patient has been improving a little on the unit though still appears quiet and withdrawn. She is spending more time out of her room and she attended group yesterday. There have been no behavioral issues. 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 Medication Change: No ( ) Medical Record Reviewed: Yes Mental Status Examination - Cognitive Function Orientation: Person, Place, Situation Memory: Intact Attention: Poor (some improvement) Concentration: Poor (ome improvement) Association: WNL Fund of Knowledge: Poor - Mood Mood: Depressed (some improvement) - Affect Affect: Constricted (some improvement, still withdrawn), Flat - Speech Speech: Appropriate (but slow low-volume underproductive) - Formal Thought Process Formal Thought Process: No Impairment - Suicidal Ideation Suicidal Ideation: No - Homicidal Ideation Homicidal Ideation: No Goal/Treatment Plan - Goal/Treatment Plan Need for Continued Stay: Remain at risks for inpatient hospitalization, Severe depression anxiety, Discharge may exacerbated symptoms, Severe functional impairment Progress Toward Problem(s) and Goals/Treatment Plan: -c/w current tx and plan -No new lab results thus far -Vitals reviewed and noted below: Selected Entries 01/19/18 01/19/18 06:56 15:52 Temperature 98.1 F Pulse Rate 70 73 Respiratory 19 Rate Blood Pressure 111/65 125/83 Estimated Date of D/C: 01/22/18
[2018-01-20] MEDS: Vancomycin 25 MG/ML PO SCH ×4 (08:44→22:50)
[2018-01-21] MEDS: Levothyroxine 100 MCG TAB PO SCH (06:48)
[2018-01-21] MEDS: Vancomycin 25 MG/ML PO SCH ×4 (08:37→21:44)
--- NOTE | 2018-01-21 08:54 | PCM.PYCHPN ---
Psychiatric Progress Note - Psychiatric Progress Note Patient seen today, length of contact: 30min Problems Identified/Issues Discussed: I reviewed recent notes and patient was interviewed at bedside again this morning. She is oriented x3, fairly groomed with a constricted affect. Patient continues to report feeling depressed and appears sad and a little flat during questioning. Patient indicates that she feels neither hopeful or hopeless. She denies any new concerns and indicates that she slept well. Communication is wnl and she can express her needs well. Patient denies any side effects or new discomfort or pain. Headache has improved since yesterday. Staff notes indicate that patient has been improving a little on the unit though still appears quiet and withdrawn. She is spending more time out of her room and she attended groups this weekend. There have been no behavioral issues. 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 Medication Change: No ( ) Medical Record Reviewed: Yes Mental Status Examination - Cognitive Function Orientation: Person, Place, Situation Memory: Intact Attention: WNL (some improvement) Concentration: Poor (ome improvement) Association: WNL Fund of Knowledge: Poor - Mood Mood: Depressed (some improvement) - Affect Affect: Constricted (some improvement, still withdrawn), Flat - Speech Speech: Appropriate (but slow low-volume underproductive) - Formal Thought Process Formal Thought Process: No Impairment - Suicidal Ideation Suicidal Ideation: No - Homicidal Ideation Homicidal Ideation: No Goal/Treatment Plan - Goal/Treatment Plan Need for Continued Stay: Remain at risks for inpatient hospitalization, Severe depression anxiety, Discharge may exacerbated symptoms, Severe functional impairment Progress Toward Problem(s) and Goals/Treatment Plan: -c/w current tx and plan -No new weekend lab results -Vitals reviewed and noted below: Selected Entries 01/20/18 01/20/18 06:54 16:00 Temperature 97.5 F L Pulse Rate 79 Respiratory 20 Rate Blood Pressure 89/54 L 110/67 Estimated Date of D/C: 01/22/18
[2018-01-22] MEDS: Levothyroxine 100 MCG TAB PO SCH (06:30)
[2018-01-22] MEDS: Vancomycin 25 MG/ML PO SCH ×4 (10:11→22:16)
--- NOTE | 2018-01-22 10:31 | CP.PCM.PN ---
<Ilana Ku - Last Filed: 01/22/18 13:39> Subjective - Date & Time of Evaluation Date of Evaluation: 01/22/18 Time of Evaluation: 09:00 - Subjective Subjective: PGY-3 ID resident progress note for Dr Daugherty Patient states she's still experiencing loose bowel movement, had 2 small loose bowel movement this morning, and 2-3x yesterday. Otherwise is able to tolerate po. Denies watery diarrhea. Denies nausea or vomiting. No fever or chills. Objective - Vital Signs/Intake and Output Vital Signs (last 24 hours): Temp Pulse Resp BP Pulse Ox 97.5 F L 75 19 103/66 01/22/18 06:46 01/22/18 06:46 01/22/18 06:46 01/22/18 06:46 - Medications Medications: Current Medications Acetaminophen (Tylenol 325mg Tab) 650 mg PO Q6H PRN PRN Reason: Pain, moderate (4-7) Last Admin: 01/21/18 15:05 Dose: 650 mg Acetaminophen (Tylenol 325mg Tab) 650 mg PO Q6H PRN PRN Reason: Pain, moderate (4-7) Last Admin: 01/20/18 12:42 Dose: 650 mg Al Hydrox/Mg Hydrox/Simethicone (Maalox Plus 30 Ml) 30 ml PO DAILY PRN PRN Reason: Indigestion / Heartburn Bupropion HCl (Wellbutrin) 100 mg PO TID [facility] Last Admin: 01/22/18 10:09 Dose: 100 mg Clonazepam (Klonopin) 0.5 mg PO BID [facility]; Protocol Last Admin: 01/22/18 10:09 Dose: 0.5 mg Famotidine (Pepcid) 20 mg PO 1000,2200 [facility] Last Admin: 01/22/18 10:07 Dose: 20 mg Gabapentin (Neurontin) 300 mg PO TID [facility]; Protocol Last Admin: 01/22/18 10:08 Dose: 300 mg Levothyroxine Sodium (Synthroid) 100 mcg PO 0600 [facility] Last Admin: 01/22/18 06:30 Dose: 100 mcg Magnesium Hydroxide (Milk Of Magnesia) 30 ml PO DAILY PRN PRN Reason: Constipation Ondansetron HCl (Zofran Tab) 4 mg PO Q8H PRN PRN Reason: Nausea/Vomiting Oxcarbazepine (Trileptal) 150 mg PO BID [facility]; Protocol Last Admin: 01/22/18 10:07 Dose: 150 mg Oxcarbazepine (Trileptal) 300 mg PO HS [facility]; Protocol Last Admin: 01/21/18 21:43 Dose: 300 mg - Labs Labs: 01/19/18 07:30 01/19/18 07:30 - Constitutional Appears: No Acute Distress - Head Exam Head Exam: ATRAUMATIC, NORMAL INSPECTION, NORMOCEPHALIC - Eye Exam Eye Exam: Normal appearance - ENT Exam ENT Exam: Mucous Membranes Moist - Neck Exam Neck Exam: Normal Inspection - Respiratory Exam Respiratory Exam: Clear to Ausculation Bilateral, NORMAL BREATHING PATTERN. absent: Rales, Rhonchi, Wheezes, Respiratory Distress, Stridor - Cardiovascular Exam Cardiovascular Exam: REGULAR RHYTHM - GI/Abdominal Exam GI & Abdominal Exam: Soft, Normal Bowel Sounds. absent: Distended, Firm, Guarding, Rigid, Tenderness - Extremities Exam Extremities Exam: Normal Inspection. absent: Pedal Edema - Back Exam Back Exam: NORMAL INSPECTION - Neurological Exam Neurological Exam: Alert, Awake, Oriented x3 - Psychiatric Exam Psychiatric exam: Normal Affect, Normal Mood - Skin Skin Exam: Dry Assessment and Plan - Assessment and Plan (Free Text) Assessment: Patient is a 42 y/o female with PMHx of depression, schizoaffective disorder, hypothyroidism, being treated with symptomatic antigen positive c. diff , toxin negative. Plan: All the vitals were reviewed. Completed 11 days of po vanco, to continue with po vancomycin for a total of 14 days. Continue psych treatment as per psych team. Patient seen, examined case discussed with Dr. Daugherty. <Garcia Daugherty - Last Filed: 01/22/18 22:38> Objective - Vital Signs/Intake and Output Vital Signs (last 24 hours): Temp Pulse Resp BP Pulse Ox 97.5 F L 81 19 137/103 H 01/22/18 06:46 01/22/18 15:46 01/22/18 06:46 01/22/18 15:46 - Medications Medications: Current Medications Acetaminophen (Tylenol 325mg Tab) 650 mg PO Q6H PRN PRN Reason: Pain, moderate (4-7) Last Admin: 01/21/18 15:05 Dose: 650 mg Acetaminophen (Tylenol 325mg Tab) 650 mg PO Q6H PRN PRN Reason: Pain, moderate (4-7) Last Admin: 01/20/18 12:42 Dose: 650 mg Al Hydrox/Mg Hydrox/Simethicone (Maalox Plus 30 Ml) 30 ml PO DAILY PRN PRN Reason: Indigestion / Heartburn Bupropion HCl (Wellbutrin) 100 mg PO TID [facility] Last Admin: 01/22/18 17:40 Dose: 100 mg Clonazepam (Klonopin) 0.5 mg PO BID [facility]; Protocol Last Admin: 01/22/18 17:40 Dose: 0.5 mg Famotidine (Pepcid) 20 mg PO 1000,2200 [facility] Last Admin: 01/22/18 22:15 Dose: 20 mg Gabapentin (Neurontin) 300 mg PO TID [facility]; Protocol Last Admin: 01/22/18 17:40 Dose: 300 mg Levothyroxine Sodium (Synthroid) 100 mcg PO 0600 [facility] Last Admin: 01/22/18 06:30 Dose: 100 mcg Magnesium Hydroxide (Milk Of Magnesia) 30 ml PO DAILY PRN PRN Reason: Constipation Ondansetron HCl (Zofran Tab) 4 mg PO Q8H PRN PRN Reason: Nausea/Vomiting Oxcarbazepine (Trileptal) 150 mg PO BID [facility]; Protocol Last Admin: 01/22/18 17:40 Dose: 150 mg Oxcarbazepine (Trileptal) 300 mg PO HS [facility]; Protocol Last Admin: 01/22/18 22:15 Dose: 300 mg Vancomycin HCl (Vancocin 25 Mg/Ml (Oral Use)) 125 mg PO QID [facility]; Protocol Stop: 01/25/18 13:01 Last Admin: 01/22/18 22:16 Dose: 125 mg - Labs Labs: 01/19/18 07:30 01/19/18 07:30 Assessment and Plan - Assessment and Plan (Free Text) Plan: Infectious Diseases Attending Physician Addendum Patient seen, examined, discussed with biomedical field service engineer. I have reviewed the pertinent clinical information. I agree with the above findings, assessment and plan and in addition, continue PO Vancomycin (Day 11) for C. diff. associated diarrhea, to complete 10-14 days. Patient with loose bowel movement, non-watery, which means patient is clinically better.
--- NOTE | 2018-01-22 16:32 | PCM.PYCHPN ---
Psychiatric Progress Note - Psychiatric Progress Note Patient seen today, length of contact: 30min Patient Chief Complaint: "I feel ddepressed, but overall better". Problems Identified/Issues Discussed: Suicide/ homicide prevention, past psychiatric h/o, current psychiatric symptoms, medical problems, risk/benefits and alternatives of medications, medications compliance, coping strategies, substance abuse h/o, relapse prevention, importance of follow up with psychiatrist and therapist, discharge plan. Medical Problems: Vital Signs Temp Pulse Resp BP 01/13/18 06:45 97.5 F L 64 20 105/62 01/12/18 22:00 18 see HPI c.diff on abx h/o lice treated hypothyroidism see HPI for more detailed info Diagnostic Results: see labs from the medical admission 01/19/18 07:30 01/19/18 07:30 Lab Results 01/19/18 07:30: WBC 10.8, RBC 4.05, Hgb 12.4 D, Hct 37.8, MCV 93.3, MCH 30.6, MCHC 32.8, RDW 16.7 H, Plt Count 318, MPV 9.2 01/19/18 07:30: Sodium 139, Potassium 4.0, Chloride 103, Carbon Dioxide 28, Anion Gap 12, BUN 13, Creatinine 1.0, Est GFR ( Amer) > 60, Est GFR (Non-Af Amer) > 60, Random Glucose 89, Calcium 9.0 Vital Signs Temp Pulse Resp BP 01/22/18 15:46 81 137/103 H 01/22/18 06:46 97.5 F L 75 19 103/66 01/21/18 16:00 70 112/71 01/21/18 07:22 98.1 F 69 20 115/78 01/21/18 07:20 98.1 F 69 20 115/78 01/20/18 16:00 79 110/67 01/20/18 06:54 97.5 F L 18 L 20 89/54 L 01/19/18 15:52 73 125/83 01/19/18 06:56 98.1 F 70 19 111/65 01/19/18 06:53 98.1 F 70 20 111/65 01/19/18 06:47 98.1 F 70 19 111/65 01/18/18 15:29 74 109/69 01/18/18 06:41 97.6 F 65 18 96/56 L 01/17/18 16:00 72 111/63 01/17/18 07:00 97.9 F 61 18 96/63 L 01/17/18 06:56 97.9 F 61 20 96/63 L 01/16/18 16:00 75 103/66 01/16/18 07:08 97.3 F L 61 19 107/69 01/15/18 16:00 73 107/81 01/15/18 07:09 98.5 F 67 20 109/75 01/14/18 07:00 98.2 F 70 20 01/14/18 06:46 98.2 F 70 20 103/66 01/13/18 15:00 72 112/70 01/13/18 06:45 97.5 F L 64 20 105/62 01/12/18 22:00 18 DSM 5 Symptoms Update: Shortly pt is 42 yo male,h/o depression, homelessness, pt does not have h/o suicidal attempts, this is pt's first psychiatric admission, pt was brought into the [facility] for evaluation of severe depression for the past two months, inability to take care of self, pt had recent UTI, since that time pt had urine and fecal incontinence, pt was evicted from the [facility] because of the above, but later on allowed to stay there, pt also was had head lice, pt was not able to attend the partial care program because of her hygiene. during psychiatric [place] here [place] [facility] [place] pt got tx for lice infestation twice, hopefully successful, pt developed diarrhea, found C.Diff positive, pt was transferred to the Medical Floor on 01/11/18 for observation , antibiotic treatment. Pt was medically cleared 01/12/18, off contact isolation, pt had no diarrhea for 24 hours while on medical site, pt was transferred back to the psychiatric inpatient unit uneventfully. patient was seen next to the nursing station, patient presented with bright affect, patient reported that she still feels depressed, but obviously patient improved very much, hygiene is much better, patient ambulates and participated in all unit activities, appetite is perfect, sleep improved. As per staff no agitation, no aggression, no psychosis, patient is calm and corporative, medication compliance is perfect. patient currently on vancomycin, tolerated well.. So far patient tolerates medications well, no side effects observed or reported, aims 0, no EPS. patient denied any thoughts of killing herself or others, contracted for safety. 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 Medication Change: No ( ) Medical Record Reviewed: Yes Consults ordered or reviewed: medical follow-up ID consult called Mental Status Examination - Cognitive Function Orientation: Person, Place, Situation Memory: Intact Attention: WNL (some improvement) Concentration: Poor (improvement) Association: WNL Fund of Knowledge: Poor (baseline) - Mood Mood: Depressed (some improvement) - Affect Affect: Constricted (reactive, mood congruent), Flat - Speech Speech: Appropriate (but slow low-volume underproductive) - Formal Thought Process Formal Thought Process: No Impairment - Suicidal Ideation Suicidal Ideation: No - Homicidal Ideation Homicidal Ideation: No Goal/Treatment Plan - Goal/Treatment Plan Need for Continued Stay: Remain at risks for inpatient hospitalization, Severe depression anxiety, Discharge may exacerbated symptoms, Severe functional impairment Progress Toward Problem(s) and Goals/Treatment Plan: Milieu/structure/supportive therapy Medical follow up as needed pt is off contact isolation patient is on antibiotics for Clostridium difficile, will call for ID consult pt still has diarrhea pt was tx for lice infestation wellbutrin 100mg by mouth tid for depression Klonopin 0.5 mg twice a day scheduled for catatonia ECT treatment is not indicated no consultation for discharge plan and social issues collaterals obtained, see notes for more detailed information (briefly pt was not compliant with meds 3 weeks prior, due to insurance issues, when was on meds, was functioning well.) Family involvement Follow up on labs Will monitor closely Pt was educated about risk/benefits and alternatives of medications, coping strategies (safety plan, suicide prevention), relapse prevention, importance of follow up with psychiatrist and therapist, stay away from drugs/alcohol/smoking patient was recommended subacute rehabilitation, awaiting insurance authorization. Estimated Date of D/C: 01/23/18
[2018-01-23] MEDS: Levothyroxine 100 MCG TAB PO SCH (06:43)
[2018-01-23 07:10] VITALS: BP 98/68; PULSE 76; TEMP 98.2
[2018-01-23 07:15] VITALS: RESP 18
[2018-01-23] MEDS: Vancomycin 25 MG/ML PO SCH (10:06)
--- NOTE | 2018-01-23 17:58 | PCM.PYCHDC ---
Mental Status Examination - Mental Status Examination Orientation: Person, Place, Situation, Time Memory: Intact Mood: Neutral Affect: Broad (and mood congruent) Speech: Appropriate Attention: WNL Concentration: WNL Association: WNL Fund of Knowledge: WNL Formal Thought Process: No Impairment Description of patient's judgement and insight: Pt has improved insight into mental and medical illness, pt was compliant with medications and unit rules and regulations, pt was going to groups, was calm, cooperative, socially appropriate, no behavioral incidents, no agitation, no aggression. Psychotic Thoughts and Behaviors: Pt denied v/a/t hallucinations, denied paranoid ideations, pt does not appear to be psychotic, and thought process is goal directed. Suicidal Ideation: No Current Homicidal Ideation?: No Plan: pt adamantly denied thoughts of harming self or others denied intent or plan. Discharge Summary - Discharge Note Reason for Hospitalization: depression, inability to function, suicidal ideation please see admission notes for more detailed information Psychiatric History (includes Medical, Family, Personal Hx): depression and anxiety Laboratory Data: 01/19/18 07:30 01/19/18 07:30 Lab Results 01/19/18 07:30: WBC 10.8, RBC 4.05, Hgb 12.4 D, Hct 37.8, MCV 93.3, MCH 30.6, MCHC 32.8, RDW 16.7 H, Plt Count 318, MPV 9.2 01/19/18 07:30: Sodium 139, Potassium 4.0, Chloride 103, Carbon Dioxide 28, Anion Gap 12, BUN 13, Creatinine 1.0, Est GFR ( Amer) > 60, Est GFR (Non- Af Amer) > 60, Random Glucose 89, Calcium 9.0 Vital Signs Temp Pulse Resp BP 01/23/18 07:14 98.2 F 76 18 98/68 L 01/23/18 07:10 98.2 F 76 20 98/68 L 01/22/18 15:46 81 137/103 H 01/22/18 06:46 97.5 F L 75 19 103/66 01/21/18 16:00 70 112/71 01/21/18 07:22 98.1 F 69 20 115/78 01/21/18 07:20 98.1 F 69 20 115/78 01/20/18 16:00 79 110/67 01/20/18 06:54 97.5 F L 18 L 20 89/54 L 01/19/18 15:52 73 125/83 01/19/18 06:56 98.1 F 70 19 111/65 01/19/18 06:53 98.1 F 70 20 111/65 01/19/18 06:47 98.1 F 70 19 111/65 01/18/18 15:29 74 109/69 01/18/18 06:41 97.6 F 65 18 96/56 L 01/17/18 16:00 72 111/63 01/17/18 07:00 97.9 F 61 18 96/63 L 01/17/18 06:56 97.9 F 61 20 96/63 L 01/16/18 16:00 75 103/66 01/16/18 07:08 97.3 F L 61 19 107/69 01/15/18 16:00 73 107/81 01/15/18 07:09 98.5 F 67 20 109/75 01/14/18 07:00 98.2 F 70 20 01/14/18 06:46 98.2 F 70 20 103/66 01/13/18 15:00 72 112/70 01/13/18 06:45 97.5 F L 64 20 105/62 01/12/18 22:00 18 Consultations:: List each consultation separately and include: 1. Reason for request. 2. Findings. 3. Follow-up Consultations: medical follow-up ID consult called please see notes for more detailed information Summary of Hospital Course include:: 1. Description of specific treatment plan utilized for patients during their course of treatmen. 2. Summarize the time- course for resolution of acute symptoms and/or regressed behaviors. 3. Describe issues identified and worked on during hospitalization. 4. Describe medication utilized. 5. Describe medical problems identified and treated. 6. Reassessment of suicide risk Summary of Hospital Course: Shortly pt is 42 yo male,h/o depression, homelessness, pt does not have h/o suicidal attempts, this is pt's first psychiatric admission, pt was brought into the [facility] for evaluation of severe depression for the past two months, inability to take care of self, pt had recent UTI, since that time pt had urine and fecal incontinence, [facility] because of the above, but later on allowed to stay there, pt also was had head lice, pt was not able to attend the partial care program because of her hygiene. during psychiatric admission here at [facility], pt got tx for lice infestation twice, hopefully successful, pt developed diarrhea, found C.Diff positive, pt was transferred to the Medical Floor on 01/11/18 for observation , antibiotic treatment. Pt was medically cleared 01/12/18, off contact isolation, pt had no diarrhea for 24 hours while on medical site, pt was transferred back to the psychiatric inpatient unit uneventfully. please see admission note for more detailed information. Patient was stabilized on the following medication: wellbutrin 100mg by mouth tid for depression Klonopin 0.5 mg twice a day scheduled for catat[place] Trileptal for mood stabilization Neurontinfor neuropathy and anxiety So far patient tolerates medications well, no side effects observed or reported, aims 0, no EPS. patient is on antibiotics for Clostridium difficile, on vancomycin supposed to be continued foranother 3 days pt was tx for lice infestation, got treatment 2 times ECT treatment as discussed but patient improved collaterals obtained, see SW notes for more detailed information (briefly pt was not compliant with meds 3 weeks prior, due to insurance issues, when was on meds, was functioning well.) Over the course of this hospitalization pt was attending groups, pt also had medication management, had therapeutic milieu. Overall pt improved significantly, pt's affect became brighter, pt was less depressed, has realistic future oriented plans, pt also does not appear to be psychotic, or anxious, pt was socially appropriate, no behavioral issues, pts insight improved as well and soon pt deemed to be ready for discharge. as per physical therapy recommendation subacute rehabilitation but insurance did not pay for that, patient was denied. [facility], please see social media marketing analyst notes for more detailed information. At the time of the discharge pt denied been depressed, denied thoughts of harmin g self or others, denied psychotic symptoms, and pt does not appeared to be psychotic, denied been anxious, pt is not in imminent danger to self or others, pt will be followed up [facility] [place] [facility], time and address provided to the pt, it is patient responsibility to follow up with outpatient clinic, PMD as well as specialists. In case pt will need to obtain results of studies pending at discharge pt was provided with contact information of Psychiatric Inpatient unit [phone] as well as Medical Record Department [phone]. denied smoking, denied alcohol consumption pt was provided with prescriptions for all of medications (please see medication reconciliation form) Pt was educated about safety plan in case of worsening of symptoms or in case of suicidal or homicidal ideation call 911 or go to the nearest ER, also was educated to take meds as prescribed and stay away from drugs, pt verbalized understanding. - Diagnosis (1) MDD (major depressive disorder) Status: Chronic Priority: High (2) Hypothyroidism Status: Chronic Priority: Medium - Final Diagnosis (DSM 5) Condition upon Discharge: GOOD Disposition: HOME/ ROUTINE Follow-up Treatment Plan: At the time of the discharge pt denied been depressed, denied thoughts of harming self or others, denied psychotic symptoms, and pt does not appeared to be psychotic, denied been anxious, pt is not in imminent danger to self or others, pt will be followed up [facility], time and address provided to the pt, it is patient responsibility to follow up with outpatient clinic, PMD as well as specialists. In case pt will need to obtain results of studies pending at discharge pt was provided with contact information of Psychiatric Inpatient unit [phone] as well as Medical Record Department [phone]. denied smoking, denied alcohol consumption pt was provided with prescriptions for all of medications (please see medication reconciliation form) Pt was educated about safety plan in case of worsening of symptoms or in case of suicidal or homicidal ideation call 911 or go to the nearest ER, also was educated to take meds as prescribed and stay away from drugs, pt verbalized understanding. Prescriptions/Medication Reconciliation: buPROPion [Wellbutrin] 100 mg PO TID #90 tab clonazePAM [Klonopin] 0.5 mg PO BID #60 tab Famotidine [Pepcid] 20 mg PO 1000,2200 #60 tab Gabapentin [Neurontin] 300 mg PO TID #90 cap Levothyroxine [Synthroid] 100 mcg PO 0600 #30 tab OXcarbazepine [Trileptal] 150 mg PO BID #60 tab OXcarbazepine [Trileptal] 300 mg PO HS #30 tab Vancomycin HCl [Vancocin 125 MG Cap] 125 mg PO QID #11 capsule - Smoking Cessation Smoking Cessation Medication prescribed: No Reason for not providing: patient denied smoking - Antipsychotic Medications Pt discharged on 2 or more routine antipsychotic medications: No
--- NOTE | 2018-01-24 00:50 | PN ---
DATE: 01/23/2018 SUBJECTIVE: The patient is in bed, in no acute distress, was seen earlier this morning in psychiatric floor in room 508. PHYSICAL EXAMINATION: VITAL SIGNS: Temperature is 98, blood pressure is 98/60, respiratory rate 18, heart rate of 76. HEENT: Unremarkable. NECK: Supple. LUNGS: Have decreased breath sounds. HEART: Normal S1, S2. ABDOMEN: Soft, nontender. LABORATORY EXAMINATION: Reveals the patient's white count is 10,000. Chemistries are noted. Microbiology is reviewed. ASSESSMENT AND PLAN: This is a 42-year-old female who was seen earlier this morning in the psychiatric floor 508 with depression, schizophrenia, hypothyroidism, treated for symptomatic antigen-positive Clostridium difficile, toxin negative. Complete p.o. vancomycin for 14 days. Case discussed with staff earlier this morning. Gerber Crain MD
== END 2018-01-23 12:59 | disposition home or self-care (01) | DRG 430 ==
LOC: PSYC 18:30 → 5RNO 01-22 17:10 → PSYC 01-22 17:26
PROVIDERS: ADMIT Psychiatry & Neurology Psychiatry; ATTEND Psychiatry & Neurology Psychiatry
DX: F32.2 Major depressive disorder, single episode, severe without psychotic features (principal); A04.72 Enterocolitis due to Clostridium difficile, not specified as recurrent; F25.9 Schizoaffective disorder, unspecified; F06.1 Catatonic disorder due to known physiological condition; B85.0 Pediculosis due to Pediculus humanus capitis; E03.9 Hypothyroidism, unspecified; G62.9 Polyneuropathy, unspecified; F41.9 Anxiety disorder, unspecified; Z59.0 Homelessness